=== PATIENT | female | born 1960 | race African-American/Black ===

== ENCOUNTER 2018-12-26 14:17 | Inpatient (IN) | payer SELFPAY ==
[2018-12-26] MEDS ORDERED: NORMAL SALINE 1000 ML 1,000 ML IV ONE (14:57)
--- NOTE | 2018-12-26 14:58 | ER Document Report ---
ED Medical Screen (RME) - General Chief Complaint: High Blood Pressure Stated Complaint: HEADACHE Time Seen by Provider: 12/26/18 14:56 Mode of Arrival: Wheelchair Information source: Patient Notes: 58-year-old female presented to ED for complaint of elevated blood pressure 216/98 with possible diabetes due to frequent urination frequency thirst also she has had multiple injuries to her knees that she does have a twitch. She does have cataracts. She had her tonsils out a and dental surgeries. She states that family is concerned because she is going blind and having peripheral neuropathy as well as frequent urination and frequent thirst. She states she has not been able to get into a doctor because is $25 to get into the doctor and she does not have the money to get into the duct. She states she does smoke 7 cigarettes a day. She is alert oriented respirations regular and unlabored speaking in full sentences. I have greeted and performed a rapid initial assessment of this patient. A comprehensive ED assessment and evaluation of the patient, analysis of test results and completion of medical decision making process will be conducted by an additional ED providers. TRAVEL OUTSIDE OF THE [place] IN LAST 30 DAYS: No - Related Data Allergies/Adverse Reactions: No Known Allergies Allergy (Unverified 12/26/18 14:19) Past Medical History - Social History Chew tobacco use (# tins/day): No Frequency of alcohol use: None Drug Abuse: None Physical Exam - Vital signs Vitals: Temp Pulse BP Pulse Ox 98.5 F 83 241/108 H 98 12/26/18 14:23 12/26/18 14:23 12/26/18 14:23 12/26/18 14:23 Course - Vital Signs Vital signs: Temp Pulse Resp BP Pulse Ox 98.5 F 83 241/108 H 98 12/26/18 14:23 12/26/18 14:23 12/26/18 14:23 12/26/18 14:23
[2018-12-26] MEDS ORDERED: ASPIRIN 325 MG TABLET PO ONE (15:24)
[2018-12-26] MEDS ORDERED: LABETALOL HCL INJ 20 MG/4 ML DISP.SYRIN IV ONE (15:25)
[2018-12-26 15:26] LABS: APPEARANCE,URINE CLEAR; BILIRUBIN,URINE NEGATIVE (NEGATIVE); COLOR,URINE YELLOW; GLUCOSE, URINE NEGATIVE (NEGATIVE); KETONES,URINE NEGATIVE (NEGATIVE); LEUKOCYTE ESTERASE,URINE NEGATIVE (NEGATIVE); NITRITE,URINE NEGATIVE (NEGATIVE); PROTEIN,URINE 100 mg/dL (NEGATIVE); URINE SPECIFIC GRAVITY 1.019; UROBILINOGEN,URINE NEGATIVE mg/dL (<2.0)
[2018-12-26 15:32] LABS: ABSOLUTE BASOPHILS # (AUTO) 0.1 10^3/uL (0.0-0.2); ABSOLUTE EOSINOPHILS # (AUTO) 0.2 10^3/uL (0.0-0.6); ABSOLUTE LYMPHOCYTES (AUTO) 4.4 10^3/uL (0.5-4.7); ABSOLUTE MONOCYTES (AUTO) 0.7 10^3/uL (0.1-1.4); ABSOLUTE NEUT (AUTO) 4.6 10^3/uL (1.7-8.2); BASOPHILS % (AUTO) 1.3 % (0-2); EOSINOPHILS % (AUTO) 1.5 % (0-6); HEMATOCRIT 43.5 % (36.0-47.0); HEMOGLOBIN 14.4 g/dL (12.0-15.5); LYMPHOCYTES % (AUTO) 44.5 % (13-45); MEAN CORPUSCULAR HEMOGLOBIN 27.5 pg (27.0-33.4); MEAN CORPUSCULAR HGB CONC 33.1 g/dL (32.0-36.0); MEAN CORPUSCULAR VOLUME 83 fl (80-97); MONOCYTES % (AUTO) 7.1 % (3-13); PLATELET COUNT 157 10^3/uL (150-450); RED BLOOD COUNT 5.23 10^6/uL (3.72-5.28); RED CELL DISTRIBUTION WIDTH 13.9 % (11.5-14.0); SEGMENTED NEUTROPHILS % (AUTO) 45.6 % (42-78); TOTAL CELLS COUNTED % (AUTO) 100 %
[2018-12-26 15:43] LABS: ALBUMIN 4.6 g/dL (3.5-5.0); ALKALINE PHOSPHATASE 84 U/L (38-126); ANION GAP 10 (5-19); ASPARTATE AMINO TRANSFERASE 26 U/L (14-36); BILIRUBIN,DIRECT 0.2 mg/dL (0.0-0.4); BILIRUBIN,TOTAL 0.3 mg/dL (0.2-1.3); BLOOD UREA NITROGEN 18 mg/dL (7-20); CALCIUM 10.1 mg/dL (8.4-10.2); CARBON DIOXIDE 27 mmol/L (22-30); CHLORIDE 106 mmol/L (98-107); CREATINE KINASE 113 U/L (30-135); GLUCOSE 76 mg/dL (75-110); POTASSIUM 3.9 mmol/L (3.6-5.0); TOTAL PROTEIN 7.6 g/dL (6.3-8.2)
--- NOTE | 2018-12-26 15:45 | ER Document Report ---
ED Blood Pressure Problem - General Chief Complaint: High Blood Pressure Stated Complaint: HEADACHE Time Seen by Provider: 12/26/18 14:56 Primary Care Provider: [facility] [Primary Care Provider] - Follow up as needed Mode of Arrival: Wheelchair Notes: HPI: This is a 58-year-old -[place]ian female with past medical history of hypertension high cholesterol who presents with a headache from her doctor's office due to blood pressure of 210/105 by auto cuff. Still complains of chest pain described as a sharp pain lasting 2 to 3 minutes which is at rest and with exertion which does not change it. She has a HEART Score: History history is a 2 ECG Age is a 1 Risk Factors 3 patient is a smoker and has a strong family history Troponin Total: If HEART score is = 3 AND both tronponin measurments are normal, the 30 day risk of a major adverse cardiac event (all-cause mortality, myocardia infarction or need for coronary revscularization) is < 1% (Sensitivity 100%, NPV 100%). Chest pain in a patient without evidence of cardiac or other serious etiology on workup today. I discussed with patient that, based on their age, risk factors and emergency department testing today, the likelihood that their symptoms are related to a heart attack is very low (estimated risk of heart attack or over the next 30 days of less than 1%). The patient demonstrates decision making capacity and has verbalized an understanding of these risks to me. Based on this, the patient has chosen to follow-up as an outpatient. Usual chest pain return precautions reviewed. The patient states understanding and agreement with this plan. Past medical history as above surgical history family and social history see nurse's notes No known drug allergies review of systems: Constitutional denies fever or chills Chest chest pain denies shortness of breath neurological claims to have a headache denies weakness All other systems negative PHYSICAL EXAMINATION: GENERAL: Well-appearing, well-nourished and in no acute distress. HEAD: Atraumatic, normocephalic. EYES: Pupils equal round and reactive to light, extraocular movements intact, sclera anicteric, conjunctiva are normal. ENT: nares patent, oropharynx clear without exudates. Moist mucous membranes. NECK: Normal range of motion, supple without lymphadenopathy LUNGS: Breath sounds clear to auscultation bilaterally and equal. No wheezes rales or rhonchi. HEART: Regular rate and rhythm without murmurs ABDOMEN: Soft, nontender, normoactive bowel sounds. No guarding, no rebound. No masses appreciated. EXTREMITIES: Normal range of motion, no pitting or edema. No cyanosis. NEUROLOGICAL: No focal neurological deficits. Moves all extremities spontaneously and on command. PSYCH: Normal mood, normal affect. SKIN: Warm, Dry, normal turgor, no rashes or lesions noted. TRAVEL OUTSIDE OF THE [place] IN LAST 30 DAYS: No - Related Data Allergies/Adverse Reactions: No Known Allergies Allergy (Unverified 12/26/18 14:19) Past Medical History - General Information source: Patient - Social History Smoking Status: Current Every Day Smoker Chew tobacco use (# tins/day): No Frequency of alcohol use: None Drug Abuse: None Family History: Reviewed & Not Pertinent Patient has suicidal ideation: No Patient has homicidal ideation: No - Past Medical History Cardiac Medical History: Reports: Hx Hypertension Physical Exam - Vital signs Vitals: Temp Pulse BP Pulse Ox 98.5 F 83 241/108 H 98 12/26/18 14:23 12/26/18 14:23 12/26/18 14:23 12/26/18 14:23 Course - Vital Signs Vital signs: Temp Pulse Resp BP Pulse Ox 98.5 F 83 20 220/118 H 100 12/26/18 14:23 12/26/18 14:23 12/26/18 15:10 12/26/18 17:15 12/26/18 15:10 - Laboratory Result Diagrams: 12/26/18 15:10 12/26/18 15:10 Laboratory results interpreted by me: 12/26/18 12/26/18 14:48 15:10 Creatinine 1.43 H Est GFR ( Amer) 46 L Est GFR (MDRD) Non-Af 38 L Urine Protein 100 H - EKG Interpretation by Mt EKG shows normal: Sinus rhythm Rate: Normal Rhythm: NSR [place]/QRS: Left axis deviation Voltage: Consistant with LVH Additional EKG results interpreted by nd: 12/26/18 16:06 Patient has flipped T waves in 1, 2, aVL, aVL V4 to V6 there is no old KG to compare as a QTC of 487 ABnormal EKG Discharge - Discharge Clinical Impression: Hypertensive emergency, no CHF Condition: Fair Disposition: ADMITTED INPATIENT Admitting Provider: Roman (Hospitalist) Unit Admitted: ICU [facility]: [facility]] - Follow up as needed
[2018-12-26 15:54] LABS: CREATINE KINASE MB 1.53 ng/mL (<4.55); TROPONIN I 0.053 ng/mL
--- NOTE | 2018-12-26 16:00 | RADIOLOGY REPORT (SQ) ---
EXAM DESCRIPTION: CHEST SINGLE VIEW COMPLETED DATE/TIME: 12/26/2018 3:52 pm REASON FOR STUDY: cp COMPARISON: None. NUMBER OF VIEWS: One view. TECHNIQUE: Single frontal radiographic view of the chest acquired. LIMITATIONS: None. FINDINGS: LUNGS AND PLEURA: No opacities, masses or pneumothorax. No pleural effusion. MEDIASTINUM AND HILAR STRUCTURES: No masses. Contour normal. HEART AND VASCULAR STRUCTURES: Mild cardiomegaly. No failure. BONES: No acute findings. HARDWARE: None in the chest. OTHER: No other significant finding. IMPRESSION: Mild cardiomegaly. No failure. TECHNICAL DOCUMENTATION: JOB ID: [id number] [employer]- All Rights Reserved Reading location - IP/workstation name: [email or web address]
[2018-12-26] MEDS ORDERED: NITROGLYCERIN 2% OINTMENT 1 GM PACKET TP ONE (16:08)
[2018-12-26] MEDS ORDERED: NICARDIPINE HCL RTU, ISO-OS 20 MG/200 ML RTUINJ IV PRN (17:20)
[2018-12-26] MEDS ORDERED: GLUCAGON,HUMAN RECOMB 1 MG INJ IM PRN (18:00)
[2018-12-26] MEDS ORDERED: DEXTROSE 40% GEL 15 GM TUBE PO PRN ×2 (18:00)
[2018-12-26] MEDS ORDERED: DEXTROSE 50%-WATER 25 GM/50 ML DISP.SYRIN IV PRN ×2 (18:00)
[2018-12-26] MEDS ORDERED: LORAZEPAM INJ 2 MG/1 ML VIAL IV PRN (18:03)
--- NOTE | 2018-12-26 18:15 | PDOC H&P ---
History of Present Illness Admission Date/PCP: [facility] Patient complains of: Severe headache associated with dizziness History of Present Illness: ULISES MCKEON is a 58 year old female with history of hypertension noncompliant with medications questionable history of diabetes mellitus chronic kidney disease back pains came to the emergency room with complaints of severe headaches. She went to [facility] and found to have a blood pre ssures are very much elevated with systolic blood pressure more than 210 patient was referred to the ER for further management. In the emergency room systolic blood pressure is consistently able to 10 and her diastolic blood pressure is consistently above 110 she was given labetalol 20 mg IV 1 dose at the 3:25 PM nicardipine drip was ordered but not started at the time of my examination around 5:50 PM. Patient also complaining of unsteady gait denies any history of falls. She is also given the history of questionable borderline diabetes mellitus and questionable CKD. Past Medical History Cardiac Medical History: Reports: Hypertension Endocrine Medical History: Reports: Diabetes Mellitus Type 2 Malignancy Medical History: Reports: None GI Medical History: Reports: None Musculoskeltal Medical History: Reports: None Psychiatric Medical History: Reports: None Traumatic Medical History: Reports: None Infectious Medical History: Reports: None Past Surgical History Past Surgical History: Reports: Section, Tonsillectomy Social History Information Source: Patient Lives with: Family Smoking Status: Current Every Day Smoker Frequency of Alcohol Use: None Hx Recreational Drug Use: Yes - Advance Directive Resuscitation Status: Full Code Family History Family History: Reviewed & Not Pertinent Parental Family History Reviewed: Yes - Family history of diabetes mellitus and hypertension. Children Family History Reviewed: Yes Sibling(s) Family History Reviewed.: Yes Medication/Allergy Allergies/Adverse Reactions: No Known Allergies Allergy (Unverified 12/26/18 14:19) Review of Systems Constitutional: PRESENT: headache(s). ABSENT: chills, fatigue, fever(s), weakness Eyes: ABSENT: visual disturbances Ears: ABSENT: hearing changes Nose, Mouth, and Throat: ABSENT: sore throat Cardiovascular: ABSENT: chest pain, dyspnea on exertion, edema, orthropnea, palpitations Respiratory: ABSENT: cough, hemoptysis Gastrointestinal: ABSENT: abdominal pain, constipation, diarrhea, hematemesis, hematochezia, nausea, vomiting Neurological: ABSENT: abnormal gait, abnormal speech, confusion, dizziness, focal weakness, syncope Psychiatric: ABSENT: anxiety, depression, homidical ideation, suicidal ideation Endocrine: ABSENT: cold intolerance, heat intolerance, polydipsia, polyuria Physical Exam Vital Signs: Temp Pulse Resp BP Pulse Ox 98.5 F 83 20 220/118 H 100 12/26/18 14:23 12/26/18 14:23 12/26/18 15:10 12/26/18 17:15 12/26/18 15:10 Intake & Output 12/25/18 12/26/18 12/27/18 06:59 06:59 06:59 Intake Total 1000 Balance 1000 Weight 73.4 kg General appearance: PRESENT: cooperative, mild distress Head exam: PRESENT: atraumatic Eye exam: PRESENT: PERRLA Mouth exam: PRESENT: moist, tongue midline Teeth exam: PRESENT: poor dentation Neck exam: ABSENT: carotid bruit, JVD, lymphadenopathy, thyromegaly Respiratory exam: PRESENT: decreased breath sounds Cardiovascular exam: PRESENT: RRR. ABSENT: diastolic murmur, rubs, systolic murmur GI/Abdominal exam: PRESENT: normal bowel sounds, soft. ABSENT: distended, guarding, mass, organolmegaly, rebound, tenderness Rectal exam: PRESENT: deferred Extremities exam: PRESENT: full ROM. ABSENT: calf tenderness, clubbing, pedal edema Neurological exam: PRESENT: alert, awake, oriented to person, oriented to place, oriented to time, oriented to situation, CN II-XII grossly intact. ABSENT: motor sensory deficit Results Laboratory Results: 12/26/18 15:10 12/26/18 15:10 12/26/18 12/26/18 12/26/18 14:48 15:10 15:10 WBC 10.0 RBC 5.23 Hgb 14.4 Hct 43.5 MCV 83 MCH 27.5 MCHC 33.1 RDW 13.9 Plt Count 157 Seg Neutrophils % 45.6 Sodium 143.0 Potassium 3.9 Chloride 106 Carbon Dioxide 27 Anion Gap 10 BUN 18 Creatinine 1.43 H Est GFR ( Amer) 46 L Glucose 76 Calcium 10.1 Total Bilirubin 0.3 AST 26 Alkaline Phosphatase 84 Total Protein 7.6 Albumin 4.6 Lipase 198.5 Urine Color YELLOW Urine Appearance CLEAR Urine pH 6.0 Ur Specific [place] 1.019 Urine Protein 100 H Urine Glucose (UA) NEGATIVE Urine Ketones NEGATIVE Urine Blood NEGATIVE Urine Nitrite NEGATIVE Ur Leukocyte Esterase NEGATIVE Urine WBC (Auto) 1 Urine RBC (Auto) 1 12/26/18 12/26/18 15:10 15:10 Creatine Kinase 113 CK-MB (CK-2) 1.53 Troponin I 0.053 Impressions: Chest X-Ray 12/26/18 15:22 IMPRESSION: Mild cardiomegaly. No failure. Assessment and Plan - Diagnosis (1) HTN (hypertension), malignant Is this a current diagnosis for this admission?: Yes Plan: 12/26/2018-patient is going to be admitted to ICU. Started on nitroglycerin drip. Also to give clonidine 0.3 mg p.o. now dose. Started on morphine 1 mg IV every 6 as needed for pain and also Ativan 1 mg IV every 6 as needed for anxiety. GI prophylaxis DVT prophylaxis initiated. The plan is to bring the systolic blood pressure from 2 10-1 80 from there gradually bring down the blood pressures to normal levels. EKG was abnormal with T wave inversions most likely secondary to uncontrolled hypertension cardiac enzymes x3 was requested. Initial troponin is 0.058. Patient denies any chest pains. I am going to ask for the renal ultrasound look for any renal stenosis. To start her on nicotine patch.pt will be placed on insulin sliding scale (2) Diabetes Qualifiers: Diabetes mellitus type: type 2 Is this a current diagnosis for this admission?: No Plan: 12/26/2018-patient is given the history of borderline diabetes mellitus to check for hemoglobin A1c and start her on insulin sliding scale before meals and at bedtime and to request for a lipid panel. (3) CKD (chronic kidney disease) Is this a current diagnosis for this admission?: No Plan: 12/26/2018-patient is given the history of chronic kidney disease creatinine is 1.42 at the time of admission plan to do the renal ultrasound and also look for renal artery stenosis. (4) Tobacco abuse Is this a current diagnosis for this admission?: No Plan: 12/26/2018-patient is a chronic smoker current day smoker smoking counseling was provided for more than [address] her on nicotine patch. - Time Time Spent with patient: 25-34 minutes Smoking Cessation Education: over 10 minutes Medications reviewed and adjusted accordingly: Yes Anticipated discharge: Home
[2018-12-26] MEDS ORDERED: ENALAPRILAT DIHYDRATE INJ/PF 1.25 MG/1 ML SDV IV PRN (18:16)
[2018-12-26] MEDS: NITROGLYCERIN/D5W 50 MG/250 ML RTUINJ IV PRN (18:26)
[2018-12-26] MEDS ORDERED: NICOTINE 14 MG/24 HR PATCH.TD24 TD ONE (18:30)
[2018-12-26] MEDS ORDERED: CLONIDINE 0.3 MG/24 HR PATCH.TDWK TD ONE (19:00)
[2018-12-26] MEDS: ENOXAPARIN SODIUM INJ 40 MG/0.4 ML DISP.SYRIN SUBCUT SCH (20:02)
[2018-12-26] MEDS: INSULIN LISPRO 100 UNIT/ML 3 ML VIAL SUBCUT SCH (21:58)
[2018-12-26] MEDS ORDERED: PANTOPRAZOLE SODIUM 40 MG VIAL IV SCH (22:00)
[2018-12-26 22:41] LABS: CREATINE KINASE MB 1.52 ng/mL (<4.55); TROPONIN I 0.05 ng/mL
[2018-12-27 04:48] LABS: HEMATOCRIT 36.6 % (36.0-47.0); MEAN CORPUSCULAR HEMOGLOBIN 27.7 pg (27.0-33.4); MEAN CORPUSCULAR HGB CONC 33.5 g/dL (32.0-36.0); MEAN CORPUSCULAR VOLUME 83 fl (80-97); PLATELET COUNT 134 10^3/uL (150-450); RED BLOOD COUNT 4.44 10^6/uL (3.72-5.28); RED CELL DISTRIBUTION WIDTH 13.7 % (11.5-14.0); WHITE BLOOD COUNT 7.8 10^3/uL (4.0-10.5)
[2018-12-27 04:55] LABS: HEMOGLOBIN 12.3 g/dL (12.0-15.5)
[2018-12-27 05:08] LABS: ALBUMIN 3.8 g/dL (3.5-5.0); ALKALINE PHOSPHATASE 70 U/L (38-126); ANION GAP 10 (5-19); ASPARTATE AMINO TRANSFERASE 20 U/L (14-36); BILIRUBIN,DIRECT 0.3 mg/dL (0.0-0.4); BILIRUBIN,TOTAL 0.3 mg/dL (0.2-1.3); BLOOD UREA NITROGEN 18 mg/dL (7-20); CALCIUM 9.2 mg/dL (8.4-10.2); CARBON DIOXIDE 25 mmol/L (22-30); CHLORIDE 106 mmol/L (98-107); CREATINE KINASE 89 U/L (30-135); GLUCOSE 130 mg/dL (75-110); POTASSIUM 3.6 mmol/L (3.6-5.0); TOTAL PROTEIN 6.4 g/dL (6.3-8.2)
[2018-12-27 05:15] LABS: CREATINE KINASE MB 1.52 ng/mL (<4.55); TROPONIN I 0.052 ng/mL
--- NOTE | 2018-12-27 06:06 | RADIOLOGY REPORT (SQ) ---
EXAM DESCRIPTION: US RETROPERITONEUM LIMITED COMPLETED DATE/TME: 12/26/2018 00:00 CLINICAL HISTORY: ckd COMPARISON: None. TECHNIQUE: Real-time sonographic images of the retroperitoneum were obtained using a curved multihertz transducer. FINDINGS: The visualized portions of the aorta and IVC are unremarkable. The right kidney measures 9.3 cm in length. The left kidney measures 8.6 cm in length. No solid renal mass, shadowing renal calculi, or hydronephrosis. Millimeter simple right renal cyst. Increased bilateral renal cortical echogenicity. The urinary bladder is unremarkable. Incidental note increased echogenicity of the liver. This compatible with hepatic steatosis. IMPRESSION: 1. Increased bilateral renal cortical echogenicity. This can be seen with medical renal disease.
[2018-12-27] MEDS: MORPHINE SULFATE 10 MG/ML INJ IV PRN (07:10)
--- NOTE | 2018-12-27 08:39 | PDOC PROGRESS REPORT ---
Subjective Progress Note for:: 12/27/18 Subjective:: 58 year old female with history of hypertension noncompliant with medications questionable history of diabetes mellitus chronic kidney disease back pains came to the emergency room with complaints of severe headaches. She went to [facility] and found to have a blood pressures are very much elevated with systolic blood pressure more than 210 patient was referred to the ER for further management. In the emergency room systolic blood pressure is consist ently able to 10 and her diastolic blood pressure is consistently above 110 she was given labetalol 20 mg IV 1 dose at the 3:25 PM nicardipine drip was ordered but not started at the time of my examination around 5:50 PM. Patient also complaining of unsteady gait denies any history of falls. She is also given the history of questionable borderline diabetes mellitus and questionable CKD. [id number] female admitted with malignant hypertension she is on nitroglycerin drip at 55 units/h still blood pressure is 190/105 she is also on clonidine patch and receiving Vasotec 1.5 mg IV every 6 PRN for systolic blood pressure more than 170. On no acute events in the last 24 hours. Afebrile. Renal ultrasound was done suggestive of increased echogenicity. Plans to arrange for nephrology consult. Patient is nonoliguric. Patient states she is feeling better Reason For Visit: MALIGNANT HTN Physical Exam Vital Signs: Temp Pulse Resp BP Pulse Ox 98.9 F 74 18 190/105 H 100 12/27/18 08:18 12/27/18 08:18 12/27/18 08:18 12/27/18 08:18 12/27/18 08:18 Intake & Output 12/26/18 12/27/18 12/28/18 06:59 06:59 06:59 Intake Total 1087 Balance 1087 Weight 62.9 kg General appearance: PRESENT: no acute distress, cooperative Head exam: PRESENT: atraumatic Eye exam: PRESENT: PERRLA Mouth exam: PRESENT: moist, tongue midline Teeth exam: PRESENT: poor dentation Neck exam: ABSENT: carotid bruit, JVD, lymphadenopathy, thyromegaly Respiratory exam: PRESENT: decreased breath sounds Cardiovascular exam: PRESENT: RRR. ABSENT: diastolic murmur, rubs, systolic murmur Pulses: PRESENT: normal dorsalis pedis pul GI/Abdominal exam: PRESENT: normal bowel sounds, soft. ABSENT: distended, guarding, mass, organolmegaly, rebound, tenderness Rectal exam: PRESENT: deferred Extremities exam: PRESENT: full ROM. ABSENT: calf tenderness, clubbing, pedal edema Neurological exam: PRESENT: alert, awake, oriented to person, oriented to place, oriented to time, oriented to situation, CN II-XII grossly intact. ABSENT: motor sensory deficit Psychiatric exam: PRESENT: appropriate affect, normal mood. ABSENT: homicidal ideation, suicidal ideation Results Laboratory Results: 12/27/18 04:03 12/27/18 04:03 12/26/18 12/26/18 12/26/18 14:48 15:10 15:10 WBC 10.0 RBC 5.23 Hgb 14.4 Hct 43.5 MCV 83 MCH 27.5 MCHC 33.1 RDW 13.9 Plt Count 157 Seg Neutrophils % 45.6 Sodium 143.0 Potassium 3.9 Chloride 106 Carbon Dioxide 27 Anion Gap 10 BUN 18 Creatinine 1.43 H Est GFR ( Amer) 46 L Glucose 76 Calcium 10.1 Total Bilirubin 0.3 AST 26 Alkaline Phosphatase 84 Total Protein 7.6 Albumin 4.6 Lipase 198.5 Urine Color YELLOW Urine Appearance CLEAR Urine pH 6.0 Ur Specific [place] 1.019 Urine Protein 100 H Urine Glucose (UA) NEGATIVE Urine Ketones NEGATIVE Urine Blood NEGATIVE Urine Nitrite NEGATIVE Ur Leukocyte Esterase NEGATIVE Urine WBC (Auto) 1 Urine RBC (Auto) 1 12/27/18 12/27/18 04:03 04:03 WBC 7.8 RBC 4.44 Hgb 12.3 D Hct 36.6 MCV 83 MCH 27.7 MCHC 33.5 RDW 13.7 Plt Count 134 L Seg Neutrophils % Sodium 140.6 Potassium 3.6 Chloride 106 Carbon Dioxide 25 Anion Gap 10 BUN 18 Creatinine 1.70 H Est GFR ( Amer) 37 L Glucose 130 H Calcium 9.2 Total Bilirubin 0.3 AST 20 Alkaline Phosphatase 70 Total Protein 6.4 Albumin 3.8 Lipase Urine Color Urine Appearance Urine pH Ur Specific [place] Urine Protein Urine Glucose (UA) Urine Ketones Urine Blood Urine Nitrite Ur Leukocyte Esterase Urine WBC (Auto) Urine RBC (Auto) 12/26/18 12/26/18 12/26/18 15:10 15:10 21:54 Creatine Kinase 113 91 CK-MB (CK-2) 1.53 Troponin I 0.053 NT-Pro-B Natriuret Pep 12/26/18 12/27/18 12/27/18 21:54 04:03 04:03 Creatine Kinase 89 CK-MB (CK-2) 1.52 1.52 Troponin I 0.050 0.052 NT-Pro-B Natriuret Pep 274 Impressions: Renal Ultrasound 12/26/18 00:00 IMPRESSION: 1. Increased bilateral renal cortical echogenicity. This can be seen with medical renal disease. Chest X-Ray 12/26/18 15:22 IMPRESSION: Mild cardiomegaly. No failure. Assessment and Plan - Diagnosis (1) HTN (hypertension), malignant Is this a current diagnosis for this admission?: Yes Plan: 12/26/2018-patient is going to be admitted to ICU. Started on nitroglycerin drip. Also to give clonidine 0.3 mg p.o. now dose. Started on morphine 1 mg IV every 6 as needed for pain and also Ativan 1 mg IV every 6 as needed for anxiety. GI prophylaxis DVT prophylaxis initiated. The plan is to bring the systolic blood pressure from 2 10-1 80 from there gradually bring down the blood pressures to normal levels. EKG was abnormal with T wave inversions most likely secondary to uncontrolled hypertension cardiac enzymes x3 was requested. Initial troponin is 0.058. Patient denies any chest pains. I am going to ask for the renal ultrasound look for any renal stenosis. To start her on nicotine patch.pt will be placed on insulin sliding scale 12/27/2018-latest blood pressure is 190/105 patient is on nitroglycerin drip at 55 units/h. She is also on Catapres 0.3 mg patch and receiving Vaseretic 0.125 mg IV every 6 as needed for blood pressure more than systolic blood pressure more than 170. Renal ultrasound shows increased echogenicity. To arrange for a CT chest today to look for any aorta abnormality. Renal consult is going to be requested. Started on amlodipine 10 mg daily. Continue to closely monitor her blood pressures. Patient is on low-sodium diet. (2) Diabetes Qualifiers: Diabetes mellitus type: type 2 Is this a current diagnosis for this admission?: No Plan: 12/26/2018-patient is given the history of borderline diabetes mellitus to check for hemoglobin A1c and start her on insulin sliding scale before meals and at bedtime and to request for a lipid panel. 12/27/2018-patient's hemoglobin A1c 6.2 and blood sugar is 130. Presently on insulin sliding scale. Plan is to continue to closely monitor the blood pressure. (3) CKD (chronic kidney disease) Is this a current diagnosis for this admission?: No Plan: 12/26/2018-patient is given the history of chronic kidney disease creatinine is 1.42 at the time of admission plan to do the renal ultrasound and also look for renal artery stenosis. 12/27 CKD renal ultrasound was done suggestive of increased echogenicity and the creatinine today is 1.7 admission creatinine is 1.45 nonoliguric. Renal ultrasound shows increased echogenicity. Nephrology consult will be requested. (4) Tobacco abuse Is this a current diagnosis for this admission?: No - Time Time Spent with patient: 25-34 minutes Smoking Cessation Education: over 10 minutes Medications reviewed and adjusted accordingly: Yes Anticipated discharge: Home
[2018-12-27] MEDS ORDERED: ENALAPRILAT DIHYDRATE INJ/PF 1.25 MG/1 ML SDV IV PRN (08:45)
[2018-12-27] MEDS ORDERED: ONDANSETRON HCL INJ/PF 4 MG/2 ML SDV ONE (08:54)
[2018-12-27] MEDS ORDERED: ONDANSETRON HCL INJ/PF 4 MG/2 ML SDV IV PRN (09:48)
[2018-12-27] MEDS: INSULIN LISPRO 100 UNIT/ML 3 ML VIAL SUBCUT SCH ×4 (10:11→21:13)
[2018-12-27] MEDS: ENOXAPARIN SODIUM INJ 40 MG/0.4 ML DISP.SYRIN SUBCUT SCH (10:25)
[2018-12-27 10:47] LABS: CREATINE KINASE MB 1.23 ng/mL (<4.55); TROPONIN I 0.049 ng/mL
[2018-12-27] MEDS: NITROGLYCERIN/D5W 50 MG/250 ML RTUINJ IV PRN (11:30)
--- NOTE | 2018-12-27 11:33 | RADIOLOGY REPORT (SQ) ---
EXAM DESCRIPTION: CT CHEST WITHOUT COMPLETED DATE/TIME: 12/27/2018 11:19 am REASON FOR STUDY: shortness of breath COMPARISON: None. TECHNIQUE: CT scan performed of the chest without intravenous contrast. Images reviewed with lung, soft tissue and bone windows. Reconstructed coronal and sagittal MPR images reviewed. All images st ored on PACS. All CT scanners at this facility use dose modulation, iterative reconstruction, and/or weight based d osing when appropriate to reduce radiation dose to as low as reasonably achievable (ALARA). [facility]: Dose Right [facility]: CareDose [facility]: Dose Right [facility]: Teradose 4D [facility]: [facility] RADIATION DOSE: CT Rad equipment meets quality standard of care and radiation dose reduction techniq ues were employed. CTDIvol: 6.5 mGy. DLP: 227 mGy-cm. mGy. LIMITATIONS: No technical limitations. FINDINGS: LUNGS AND PLEURA: No masses, infiltrates, or pneumothorax. No pleural effusions or pleura l calcifications. HILAR AND MEDIASTINAL STRUCTURES: No identified masses or abnormal nodes. No obvious aneurysm. HEART AND VASCULAR STRUCTURES: Cardiomegaly. No aneurysm. No pericardial effusion. UPPER ABDOMEN: Cholelithiasis. Limited exam. THYROID AND OTHER SOFT TISSUES: No masses. No adenopathy. BONES: No significant finding. HARDWARE: None in the chest. OTHER: No other significant findings. IMPRESSION: Cardiomegaly. No acute findings. TECHNICAL DOCUMENTATION: JOB ID: [id number] Quality ID # [id number]: Final reports with documentation of one or more dose reduction techniques (e.g., Au tomated exposure control, adjustment of the mA and/or kV according to patient size, use of iterative reconstruction technique) 2010 [employer]- All Rights Reserved Reading location - IP/workstation name: [email or web address]
--- NOTE | 2018-12-27 14:24 | EKG REPORT ---
SEVERITY:- ABNORMAL ECG - SINUS RHYTHM LVH WITH SECONDARY REPOLARIZATION ABNORMALITY ANTERIOR ST ELEVATION, PROBABLY DUE TO LVH BORDERLINE PROLONGED QT INTERVAL : Confirmed by: Esteban Schulz 27-Dec-2018 14:24:00
--- NOTE | 2018-12-27 14:24 | EKG REPORT ---
SEVERITY:- ABNORMAL ECG - SINUS RHYTHM LVH WITH SECONDARY REPOLARIZATION ABNORMALITY ABNORMAL T, PROBABLE ISCHEMIA, LATERAL LEADS PROLONGED QT INTERVAL : Confirmed by: Esteban Schulz 27-Dec-2018 14:23:34
[2018-12-27] MEDS ORDERED: NICOTINE 21 MG/24 HR PATCH.TD24 TD ONE (15:30)
[2018-12-27] MEDS: NICARDIPINE HCL RTU, ISO-OS 20 MG/200 ML RTUINJ IV PRN ×2 (16:21→20:13)
[2018-12-27 16:40] LABS: CREATINE KINASE MB 1.47 ng/mL (<4.55); TROPONIN I 0.042 ng/mL
[2018-12-27] MEDS: NITROGLYCERIN 2% OINTMENT 1 GM PACKET TP SCH (20:13)
[2018-12-27] MEDS: ASPIRIN 81 MG TABLET, ENT COATED PO SCH (21:11)
[2018-12-27] MEDS: ATORVASTATIN CALCIUM 10 MG TABLET PO SCH (21:11)
[2018-12-27] MEDS ORDERED: AMLODIPINE BESYLATE 10 MG TABLET PO SCH (22:00)
[2018-12-27 22:30] LABS: CREATINE KINASE MB 1.41 ng/mL (<4.55); TROPONIN I 0.047 ng/mL
[2018-12-28] MEDS: NICARDIPINE HCL RTU, ISO-OS 20 MG/200 ML RTUINJ IV PRN (00:52)
[2018-12-28] MEDS: NITROGLYCERIN 2% OINTMENT 1 GM PACKET TP SCH ×4 (02:47→21:40)
[2018-12-28 03:43] LABS: ABSOLUTE BASOPHILS # (AUTO) 0.1 10^3/uL (0.0-0.2); ABSOLUTE EOSINOPHILS # (AUTO) 0.1 10^3/uL (0.0-0.6); ABSOLUTE MONOCYTES (AUTO) 0.9 10^3/uL (0.1-1.4); ABSOLUTE NEUT (AUTO) 6.4 10^3/uL (1.7-8.2); BASOPHILS % (AUTO) 0.8 % (0-2); EOSINOPHILS % (AUTO) 0.5 % (0-6); HEMOGLOBIN 13.1 g/dL (12.0-15.5); MEAN CORPUSCULAR HEMOGLOBIN 27.6 pg (27.0-33.4); MEAN CORPUSCULAR HGB CONC 33.6 g/dL (32.0-36.0); MEAN CORPUSCULAR VOLUME 82 fl (80-97); MONOCYTES % (AUTO) 8.8 % (3-13); PLATELET COUNT 133 10^3/uL (150-450); RED BLOOD COUNT 4.75 10^6/uL (3.72-5.28); RED CELL DISTRIBUTION WIDTH 13.8 % (11.5-14.0); SEGMENTED NEUTROPHILS % (AUTO) 60.9 % (42-78); TOTAL CELLS COUNTED % (AUTO) 100 %; WHITE BLOOD COUNT 10.4 10^3/uL (4.0-10.5)
[2018-12-28 04:05] LABS: ALBUMIN 4.3 g/dL (3.5-5.0); ALKALINE PHOSPHATASE 84 U/L (38-126); ANION GAP 10 (5-19); ASPARTATE AMINO TRANSFERASE 22 U/L (14-36); BILIRUBIN,DIRECT 0.3 mg/dL (0.0-0.4); BILIRUBIN,TOTAL 0.7 mg/dL (0.2-1.3); BLOOD UREA NITROGEN 15 mg/dL (7-20); CALCIUM 9.9 mg/dL (8.4-10.2); CARBON DIOXIDE 28 mmol/L (22-30); CHLORIDE 102 mmol/L (98-107); CREATINE KINASE 87 U/L (30-135); GLUCOSE 124 mg/dL (75-110); POTASSIUM 4.1 mmol/L (3.6-5.0); TOTAL PROTEIN 7.3 g/dL (6.3-8.2)
[2018-12-28 04:17] LABS: CREATINE KINASE MB 1.07 ng/mL (<4.55); TROPONIN I 0.059 ng/mL
[2018-12-28] MEDS: INSULIN LISPRO 100 UNIT/ML 3 ML VIAL SUBCUT SCH ×4 (08:42→21:55)
--- NOTE | 2018-12-28 09:01 | RADIOLOGY REPORT (SQ) ---
EXAM DESCRIPTION: DUPLEX ART/EREN FLOW COMPLETE COMPLETED DATE/TIME: 12/28/2018 8:44 am REASON FOR STUDY: renal artery stenosis COMPARISON: None. TECHNIQUE: Realtime and static grayscale images acquired. Selected color Doppler, velocities and spe ctral images recorded. LIMITATIONS: None. FINDINGS: RIGHT KIDNEY: RENAL ARTERY VELOCITIES: 284 cm/sec. Segmental artery velocity 60.2 cm/sec. RENAL VEIN: Color doppler flow present, patent. VELOCITY RATIO: 1.01. Normal waveforms. KIDNEY: 8.2 cm in length. Echogenicity is increased. LEFT KIDNEY: RENAL ARTERY VELOCITIES: Main renal artery is not visualized. Segmental artery velocity 58.6 cm/sec. Velocities at the renal hilum are calculated 273 cm/sec. RENAL VEIN: Color doppler flow present, patent. VELOCITY RATIO: 2.89. Normal waveforms. KIDNEY: The left kidney measures 7.9 cm in length. There is increased echogenicity. BLADDER: Normal. OTHER: Incidental note is made of gallbladder sludge possibly stones. No wall thickening. IMPRESSION: Elevated main renal artery velocities on the right. Elevated velocities at the left candace al hilum. Recommend correlation with MRA. COMMENT: NORMAL RENAL ARTERY/AORTA VELOCITY RATIO IS LESS THAN OR EQUAL TO 3.5. TECHNICAL DOCUMENTATION: JOB ID: [id number] [employer]- All Rights Reserved Reading location - IP/workstation name: [email or web address]
[2018-12-28] MEDS: LOSARTAN POTASSIUM 25 MG TABLET PO SCH (09:16)
[2018-12-28] MEDS: AMLODIPINE BESYLATE 10 MG TABLET PO SCH (09:16)
[2018-12-28] MEDS: NICOTINE 21 MG/24 HR PATCH.TD24 TD SCH (09:17)
[2018-12-28] MEDS: ENOXAPARIN SODIUM INJ 40 MG/0.4 ML DISP.SYRIN SUBCUT SCH (09:18)
[2018-12-28] MEDS: HYDRALAZINE HCL 10 MG TABLET PO SCH ×2 (13:03→21:54)
--- NOTE | 2018-12-28 18:26 | PDOC PROGRESS REPORT ---
Subjective Progress Note for:: 12/28/18 Subjective:: Patient's blood pressure is improved. She is resting in bed and appears to be comfortable. She does have involuntary myoclonic episodes with her legs. Reason For Visit: MALIGNANT HTN Physical Exam Vital Signs: Temp Pulse Resp BP Pulse Ox 98.6 F 80 19 165/82 H 99 12/27/18 16:00 12/28/18 08:00 12/28/18 16:00 12/28/18 15:42 12/28/18 16:00 Intake & Output 12/27/18 12/28/18 12/29/18 06:59 06:59 06:59 Intake Total 1087 673 403 Output Total 300 1550 900 Balance 887 870 -358 Weight 62.9 kg 61.7 kg General appearance: PRESENT: no acute distress, cooperative, well-developed Head exam: PRESENT: atraumatic, normocephalic Eye exam: PRESENT: conjunctiva pale. ABSENT: scleral icterus Ear exam: PRESENT: normal external ear exam. ABSENT: bleeding, drainage Mouth exam: PRESENT: moist, tongue midline Respiratory exam: PRESENT: clear to auscultation [place], symmetrical, unlabored. ABSENT: rales, rhonchi, tachypnea, wheezes Cardiovascular exam: PRESENT: RRR, +S1, +S2 GI/Abdominal exam: PRESENT: normal bowel sounds, soft. ABSENT: distended, tenderness Rectal exam: PRESENT: deferred Extremities exam: ABSENT: joint swelling, pedal edema Musculoskeletal exam: PRESENT: other - Decreased muscle mass Neurological exam: PRESENT: alert, awake, CN II-XII grossly intact. ABSENT: oriented to person, oriented to place, oriented to time, oriented to situation Psychiatric exam: PRESENT: flat affect. ABSENT: agitated, anxious Focused psych exam: ABSENT: delusional, restlessness Skin exam: PRESENT: dry, normal color, warm. ABSENT: rash Results Laboratory Results: 12/28/18 03:33 12/28/18 03:33 12/28/18 12/28/18 03:33 03:33 WBC 10.4 RBC 4.75 Hgb 13.1 Hct 39.0 MCV 82 MCH 27.6 MCHC 33.6 RDW 13.8 Plt Count 133 L Seg Neutrophils % 60.9 Sodium 139.5 Potassium 4.1 Chloride 102 Carbon Dioxide 28 Anion Gap 10 BUN 15 Creatinine 1.35 H Est GFR ( Amer) 49 L Glucose 124 H Calcium 9.9 Magnesium 1.9 Total Bilirubin 0.7 AST 22 Alkaline Phosphatase 84 Total Protein 7.3 Albumin 4.3 12/26/18 12/26/18 12/26/18 15:10 15:10 21:54 Creatine Kinase 113 91 CK-MB (CK-2) 1.53 Troponin I 0.053 NT-Pro-B Natriuret Pep 12/26/18 12/27/18 12/27/18 21:54 04:03 04:03 Creatine Kinase 89 CK-MB (CK-2) 1.52 1.52 Troponin I 0.050 0.052 NT-Pro-B Natriuret Pep 274 12/27/18 12/27/18 12/27/18 10:05 10:05 16:01 Creatine Kinase 93 87 CK-MB (CK-2) 1.23 Troponin I 0.049 NT-Pro-B Natriuret Pep 12/27/18 12/27/18 12/27/18 16:01 21:47 21:47 Creatine Kinase 83 CK-MB (CK-2) 1.47 1.41 Troponin I 0.042 0.047 NT-Pro-B Natriuret Pep 12/28/18 12/28/18 03:33 03:33 Creatine Kinase 87 CK-MB (CK-2) 1.07 Troponin I 0.059 NT-Pro-B Natriuret Pep Impressions: Renal Ultrasound 12/26/18 00:00 IMPRESSION: 1. Increased bilateral renal cortical echogenicity. This can be seen with medical renal disease. Chest X-Ray 12/26/18 15:22 IMPRESSION: Mild cardiomegaly. No failure. Chest CT 12/27/18 00:00 IMPRESSION: Cardiomegaly. No acute findings. Renal Artery Duplex 12/28/18 00:00 IMPRESSION: Elevated main renal artery velocities on the right. Elevated velocities at the left renal hilum. Recommend correlation with MRA. Assessment and Plan - Diagnosis (1) HTN (hypertension), malignant Is this a current diagnosis for this admission?: Yes Plan: 12/28/2018-the patient was on a continuous Cardene drip. She has been off the drip since this morning. We have initiated hydralazine, amlodipine and low-dose losartan. The patient is scheduled for a renal artery MRA. Blood pressures are still elevated but we need to reduce slowly. (2) Diabetes Qualifiers: Diabetes mellitus type: type 2 Is this a current diagnosis for this admission?: No Plan: 12/28/2018-continue sliding scale coverage. Accu-Cheks are all under 200. (3) CKD (chronic kidney disease) Is this a current diagnosis for this admission?: Yes Plan: 12/28/2018-patient with stage III chronic kidney disease. Creatinine appears stable. Await results of renal artery MRA. (4) Tobacco abuse Is this a current diagnosis for this admission?: Yes Plan: 12/28/2018-continue nicotine patch. - Time Time Spent with patient: 15-24 minutes Medications reviewed and adjusted accordingly: Yes
--- NOTE | 2018-12-28 18:39 | PDOC PROGRESS REPORT ---
Subjective Progress Note for:: 12/28/18 Subjective:: Stable for transfer to the floor Reason For Visit: MALIGNANT HTN Physical Exam Vital Signs: Temp Pulse Resp BP Pulse Ox 98.6 F 80 19 165/82 H 99 12/27/18 16:00 12/28/18 08:00 12/28/18 16:00 12/28/18 15:42 12/28/18 16:00 Intake & Output 12/27/18 12/28/18 12/29/18 06:59 06:59 06:59 Intake Total 1087 673 403 Output Total 300 1550 900 Balance 132 -871 -854 Weight 62.9 kg 61.7 kg Results Laboratory Results: 12/28/18 03:33 12/28/18 03:33 12/28/18 12/28/18 03:33 03:33 WBC 10.4 RBC 4.75 Hgb 13.1 Hct 39.0 MCV 82 MCH 27.6 MCHC 33.6 RDW 13.8 Plt Count 133 L Seg Neutrophils % 60.9 Sodium 139.5 Potassium 4.1 Chloride 102 Carbon Dioxide 28 Anion Gap 10 BUN 15 Creatinine 1.35 H Est GFR ( Amer) 49 L Glucose 124 H Calcium 9.9 Magnesium 1.9 Total Bilirubin 0.7 AST 22 Alkaline Phosphatase 84 Total Protein 7.3 Albumin 4.3 12/26/18 12/26/18 12/26/18 15:10 15:10 21:54 Creatine Kinase 113 91 CK-MB (CK-2) 1.53 Troponin I 0.053 NT-Pro-B Natriuret Pep 12/26/18 12/27/18 12/27/18 21:54 04:03 04:03 Creatine Kinase 89 CK-MB (CK-2) 1.52 1.52 Troponin I 0.050 0.052 NT-Pro-B Natriuret Pep 274 12/27/18 12/27/18 12/27/18 10:05 10:05 16:01 Creatine Kinase 93 87 CK-MB (CK-2) 1.23 Troponin I 0.049 NT-Pro-B Natriuret Pep 12/27/18 12/27/18 12/27/18 16:01 21:47 21:47 Creatine Kinase 83 CK-MB (CK-2) 1.47 1.41 Troponin I 0.042 0.047 NT-Pro-B Natriuret Pep 12/28/18 12/28/18 03:33 03:33 Creatine Kinase 87 CK-MB (CK-2) 1.07 Troponin I 0.059 NT-Pro-B Natriuret Pep Impressions: Renal Ultrasound 12/26/18 00:00 IMPRESSION: 1. Increased bilateral renal cortical echogenicity. This can be seen with medical renal disease. Chest X-Ray 12/26/18 15:22 IMPRESSION: Mild cardiomegaly. No failure. Chest CT 12/27/18 00:00 IMPRESSION: Cardiomegaly. No acute findings. Renal Artery Duplex 12/28/18 00:00 IMPRESSION: Elevated main renal artery velocities on the right. Elevated velocities at the left renal hilum. Recommend correlation with MRA.
--- NOTE | 2018-12-28 19:27 | RADIOLOGY REPORT (SQ) ---
EXAM DESCRIPTION: MRA ABDOMEN WITHOUT COMPLETED DATE/TIME: 12/28/2018 6:05 pm REASON FOR STUDY: FOLLOW UP TO RENAL DOPPLER/RECOMMENDED BY COMPARISON: None. TECHNIQUE: Noncontrast [id number] MR angiogram of the renal arteries. CONTRAST TYPE AND DOSE: None. RENAL FUNCTION: Not applicable. LIMITATIONS: Motion artifact. FINDINGS: AORTA AND ILIAC ARTERIES:No aneurysm. No dissection. No significant finding or stenosis. MESENTERIC VESSELS:No significant finding or stenosis. RENAL ARTERIES:Solitary bilateral renal arteries. Suspect approximately 50% stenosis at the origin o f the right renal artery and approximately 50% stenosis approximately 1 cm distal to the origin of th e left renal artery. ABDOMINAL ORGANS: Limited evaluation. No obvious abnormality. BONY STRUCTURES: Limited evaluation. No obvious abnormality. OTHER: No other significant finding. IMPRESSION: Examination is somewhat limited by motion artifact. Solitary bilateral renal arteries. Suspect approximately 50% stenosis at the origin of the right renal artery and approximately 50% sten osis approximately 1 cm distal to the origin of the left renal artery. Findings are in keeping with Doppler flow velocity abnormalities on prior renal Doppler ultrasound. CT angiogram may be used to f urther evaluate and is more robust against breath motion artifact and superior for the evaluation of calcific atherosclerosis. TECHNICAL DOCUMENTATION: JOB ID: [id number] [employer]- All Rights Reserved Reading location - IP/workstation name: [email or web address]
[2018-12-28] MEDS: ATORVASTATIN CALCIUM 10 MG TABLET PO SCH (21:50)
[2018-12-28] MEDS: ASPIRIN 81 MG TABLET, ENT COATED PO SCH (21:50)
[2018-12-29] MEDS: NITROGLYCERIN 2% OINTMENT 1 GM PACKET TP SCH ×4 (02:35→21:09)
[2018-12-29] MEDS: MORPHINE SULFATE 10 MG/ML INJ IV PRN (02:43)
[2018-12-29 03:49] LABS: ABSOLUTE BASOPHILS # (AUTO) 0.1 10^3/uL (0.0-0.2); ABSOLUTE EOSINOPHILS # (AUTO) 0.1 10^3/uL (0.0-0.6); ABSOLUTE LYMPHOCYTES (AUTO) 3.5 10^3/uL (0.5-4.7); ABSOLUTE MONOCYTES (AUTO) 0.8 10^3/uL (0.1-1.4); ABSOLUTE NEUT (AUTO) 4.8 10^3/uL (1.7-8.2); BASOPHILS % (AUTO) 1.1 % (0-2); EOSINOPHILS % (AUTO) 1.2 % (0-6); HEMATOCRIT 38.8 % (36.0-47.0); HEMOGLOBIN 12.9 g/dL (12.0-15.5); LYMPHOCYTES % (AUTO) 37.6 % (13-45); MEAN CORPUSCULAR HEMOGLOBIN 27.5 pg (27.0-33.4); MEAN CORPUSCULAR HGB CONC 33.2 g/dL (32.0-36.0); MEAN CORPUSCULAR VOLUME 83 fl (80-97); MONOCYTES % (AUTO) 8.3 % (3-13); PLATELET COUNT 131 10^3/uL (150-450); RED BLOOD COUNT 4.68 10^6/uL (3.72-5.28); RED CELL DISTRIBUTION WIDTH 13.7 % (11.5-14.0); SEGMENTED NEUTROPHILS % (AUTO) 51.8 % (42-78); TOTAL CELLS COUNTED % (AUTO) 100 %; WHITE BLOOD COUNT 9.2 10^3/uL (4.0-10.5)
[2018-12-29 04:09] LABS: ANION GAP 9 (5-19); BLOOD UREA NITROGEN 21 mg/dL (7-20); CALCIUM 9.5 mg/dL (8.4-10.2); CARBON DIOXIDE 28 mmol/L (22-30); CHLORIDE 102 mmol/L (98-107); GLUCOSE 108 mg/dL (75-110); POTASSIUM 4.3 mmol/L (3.6-5.0)
[2018-12-29] MEDS: HYDRALAZINE HCL 10 MG TABLET PO SCH ×3 (05:04→22:39)
[2018-12-29] MEDS: ENOXAPARIN SODIUM INJ 40 MG/0.4 ML DISP.SYRIN SUBCUT SCH (09:38)
[2018-12-29] MEDS: INSULIN LISPRO 100 UNIT/ML 3 ML VIAL SUBCUT SCH ×4 (09:38→22:40)
[2018-12-29] MEDS: NICOTINE 21 MG/24 HR PATCH.TD24 TD SCH (09:40)
[2018-12-29] MEDS: LOSARTAN POTASSIUM 25 MG TABLET PO SCH (09:41)
[2018-12-29] MEDS: AMLODIPINE BESYLATE 10 MG TABLET PO SCH (09:41)
--- NOTE | 2018-12-29 13:24 | PDOC PROGRESS REPORT ---
Subjective Progress Note for:: 12/29/18 Subjective:: Patient is quite comfortable resting in bed. Visitor is present. Reason For Visit: MALIGNANT HTN Physical Exam Vital Signs: Temp Pulse Resp BP Pulse Ox 97.9 F 68 16 149/85 H 98 12/29/18 12:00 12/29/18 12:00 12/29/18 12:00 12/29/18 12:00 12/29/18 12:00 Intake & Output 12/28/18 12/29/18 12/30/18 06:59 06:59 06:59 Intake Total 673 403 120 Output Total 1550 1500 0 Balance -877 -1097 120 Weight 61.7 kg 62.3 kg General appearance: PRESENT: no acute distress, cooperative, well-developed Head exam: PRESENT: atraumatic, normocephalic Eye exam: PRESENT: conjunctiva pink. ABSENT: scleral icterus Ear exam: PRESENT: normal external ear exam. ABSENT: bleeding, drainage Mouth exam: PRESENT: moist, tongue midline Respiratory exam: PRESENT: clear to auscultation [place], symmetrical, unlabored. ABSENT: rales, stridor, tachypnea, wheezes Cardiovascular exam: PRESENT: RRR, +S1, +S2, systolic murmur - 2/6 GI/Abdominal exam: PRESENT: normal bowel sounds, soft. ABSENT: guarding, tenderness Extremities exam: ABSENT: calf tenderness, joint swelling, pedal edema Musculoskeletal exam: PRESENT: other - Myoclonic jerks in her legs Neurological exam: PRESENT: alert, awake, oriented to person, oriented to place, oriented to time, oriented to situation, other - Patient exhibits myoclonic jerking in her legs. She states she was told that it comes from an injection in her knee. Psychiatric exam: PRESENT: appropriate affect, normal mood. ABSENT: agitated, anxious Focused psych exam: ABSENT: delusional Skin exam: PRESENT: dry, normal color, warm. ABSENT: rash Results Laboratory Results: 12/29/18 03:39 12/29/18 03:39 12/29/18 12/29/18 03:39 03:39 WBC 9.2 RBC 4.68 Hgb 12.9 Hct 38.8 MCV 83 MCH 27.5 MCHC 33.2 RDW 13.7 Plt Count 131 L Seg Neutrophils % 51.8 Sodium 138.7 Potassium 4.3 Chloride 102 Carbon Dioxide 28 Anion Gap 9 BUN 21 H Creatinine 1.44 H Est GFR ( Amer) 45 L Glucose 108 Calcium 9.5 Magnesium 2.0 12/26/18 12/26/18 12/26/18 15:10 15:10 21:54 Creatine Kinase 113 91 CK-MB (CK-2) 1.53 Troponin I 0.053 NT-Pro-B Natriuret Pep 12/26/18 12/27/18 12/27/18 21:54 04:03 04:03 Creatine Kinase 89 CK-MB (CK-2) 1.52 1.52 Troponin I 0.050 0.052 NT-Pro-B Natriuret Pep 274 12/27/18 12/27/18 12/27/18 10:05 10:05 16:01 Creatine Kinase 93 87 CK-MB (CK-2) 1.23 Troponin I 0.049 NT-Pro-B Natriuret Pep 12/27/18 12/27/18 12/27/18 16:01 21:47 21:47 Creatine Kinase 83 CK-MB (CK-2) 1.47 1.41 Troponin I 0.042 0.047 NT-Pro-B Natriuret Pep 12/28/18 12/28/18 03:33 03:33 Creatine Kinase 87 CK-MB (CK-2) 1.07 Troponin I 0.059 NT-Pro-B Natriuret Pep Impressions: Renal Ultrasound 12/26/18 00:00 IMPRESSION: 1. Increased bilateral renal cortical echogenicity. This can be seen with medical renal disease. Chest X-Ray 12/26/18 15:22 IMPRESSION: Mild cardiomegaly. No failure. Chest CT 12/27/18 00:00 IMPRESSION: Cardiomegaly. No acute findings. Renal Artery Duplex 12/28/18 00:00 IMPRESSION: Elevated main renal artery velocities on the right. Elevated velocities at the left renal hilum. Recommend correlation with MRA. Abdomen MRI with MRA 12/28/18 16:56 IMPRESSION: Examination is somewhat limited by motion artifact. Solitary bi lateral renal arteries. Suspect approximately 50% stenosis at the origin of the right renal artery and approximately 50% stenosis approximately 1 cm distal to the origin of the left renal artery. Findings are in keeping with Doppler flow velocity abnormalities on prior renal Doppler ultrasound. CT angiogram may be used to further evaluate and is more robust against breath motion artifact and superior for the evaluation of calcific atherosclerosis. Assessment and Plan - Diagnosis (1) HTN (hypertension), malignant Is this a current diagnosis for this admission?: Yes Plan: 12/28/2018-the patient was on a continuous Cardene drip. She has been off the drip since this morning. We have initiated hydralazine, amlodipine and low-dose losartan. The patient is scheduled for a renal artery MRA. Blood pressures are still elevated but we need to reduce slowly. 12/29/2018-patient's blood pressure is very good. At this time we will continue the hydralazine, losartan and amlodipine. Consider decreasing the hydralazine increase in the losartan as well as adding chlorthalidone. (2) Diabetes Qualifiers: Diabetes mellitus type: type 2 Is this a current diagnosis for this admission?: No Plan: 12/28/2018-continue sliding scale coverage. Accu-Cheks are all under 200. 12/29/[id number] are excellent. Continue current regimen. (3) CKD (chronic kidney disease) Is this a current diagnosis for this admission?: Yes Plan: 12/28/2018-patient with stage III chronic kidney disease. Creatinine appears stable. Await results of renal artery MRA. 12/29/2018-his renal function is stable. (4) Tobacco abuse Is this a current diagnosis for this admission?: Yes Plan: 12/28/2018-continue nicotine patch. 12/29/2018-explained to the patient that if she keeps smoking it will accelerate her renal artery stenosis as well as increase her risk for stroke, lung disease and peripheral arterial disease. We will continue the nicotine patch. She states that she is not experiencing any problems and would like to quit. (5) Renal artery stenosis Is this a current diagnosis for this admission?: Yes Plan: 12/29/2018-MRI revealed 50% stenosis bilateral renal arteries. Both lesions are at or close to the proximal end. Excellent blood pressure control on the current regimen. Consider modifying regimen with a focus on the renal artery stenosis. Once is stable consider referral for angioplasty. (6) Myoclonus Is this a current diagnosis for this admission?: Yes Plan: 12/29/2018-the patient exhibits myoclonic-like jerking of her legs. I will ask physical therapy to see her. She states it was due to an injection in her knee. I suggested that she be evaluated by neurology or physiatry post discharge. - Time Time Spent with patient: 15-24 minutes Smoking Cessation Education: 3 to 10 minutes Medications reviewed and adjusted accordingly: Yes Anticipated discharge: Home
[2018-12-29] MEDS: ASPIRIN 81 MG TABLET, ENT COATED PO SCH (22:39)
[2018-12-29] MEDS: ATORVASTATIN CALCIUM 40 MG TABLET PO SCH (22:40)
[2018-12-30] MEDS ORDERED: LABETALOL HCL INJ 20 MG/4 ML DISP.SYRIN IV PRN (00:20)
[2018-12-30] MEDS: HYDRALAZINE HCL INJ/PF 20 MG/1 ML SDV IV PRN (00:37)
[2018-12-30 03:49] LABS: ABSOLUTE BASOPHILS # (AUTO) 0.1 10^3/uL (0.0-0.2); ABSOLUTE EOSINOPHILS # (AUTO) 0.2 10^3/uL (0.0-0.6); ABSOLUTE LYMPHOCYTES (AUTO) 3.5 10^3/uL (0.5-4.7); ABSOLUTE MONOCYTES (AUTO) 0.6 10^3/uL (0.1-1.4); ABSOLUTE NEUT (AUTO) 4.5 10^3/uL (1.7-8.2); BASOPHILS % (AUTO) 0.8 % (0-2); EOSINOPHILS % (AUTO) 1.8 % (0-6); HEMATOCRIT 38.9 % (36.0-47.0); LYMPHOCYTES % (AUTO) 39.7 % (13-45); MEAN CORPUSCULAR HEMOGLOBIN 27.6 pg (27.0-33.4); MEAN CORPUSCULAR HGB CONC 33.5 g/dL (32.0-36.0); MEAN CORPUSCULAR VOLUME 82 fl (80-97); MONOCYTES % (AUTO) 6.8 % (3-13); PLATELET COUNT 149 10^3/uL (150-450); RED BLOOD COUNT 4.72 10^6/uL (3.72-5.28); SEGMENTED NEUTROPHILS % (AUTO) 50.9 % (42-78); TOTAL CELLS COUNTED % (AUTO) 100 %; WHITE BLOOD COUNT 8.8 10^3/uL (4.0-10.5)
[2018-12-30] MEDS: NITROGLYCERIN 2% OINTMENT 1 GM PACKET TP SCH ×4 (04:11→21:34)
[2018-12-30 04:14] LABS: ALBUMIN 3.9 g/dL (3.5-5.0); ANION GAP 9 (5-19); BLOOD UREA NITROGEN 21 mg/dL (7-20); CALCIUM 9.7 mg/dL (8.4-10.2); CARBON DIOXIDE 28 mmol/L (22-30); CHLORIDE 102 mmol/L (98-107); GLUCOSE 126 mg/dL (75-110); PHOSPHORUS 4.3 mg/dL (2.5-4.5); POTASSIUM 4.3 mmol/L (3.6-5.0)
[2018-12-30] MEDS: HYDRALAZINE HCL 10 MG TABLET PO SCH ×3 (06:27→21:35)
[2018-12-30] MEDS: INSULIN LISPRO 100 UNIT/ML 3 ML VIAL SUBCUT SCH ×4 (10:27→21:33)
[2018-12-30] MEDS: LOSARTAN POTASSIUM 25 MG TABLET PO SCH (10:39)
[2018-12-30] MEDS: AMLODIPINE BESYLATE 10 MG TABLET PO SCH (10:40)
[2018-12-30] MEDS: NICOTINE 21 MG/24 HR PATCH.TD24 TD SCH (10:40)
[2018-12-30] MEDS: ENOXAPARIN SODIUM INJ 40 MG/0.4 ML DISP.SYRIN SUBCUT SCH (10:44)
--- NOTE | 2018-12-30 12:59 | PDOC PROGRESS REPORT ---
Subjective Progress Note for:: 12/30/18 Subjective:: The patient is sitting up in bed eating lunch. She continues to have myoclonic jerks. Overall she appears comfortable. Reason For Visit: MALIGNANT HTN Physical Exam Vital Signs: Temp Pulse Resp BP Pulse Ox 98.2 F 89 16 154/84 H 96 12/30/18 12:44 12/30/18 12:44 12/30/18 12:44 12/30/18 12:44 12/30/18 12:44 Intake & Output 12/29/18 12/30/18 12/31/18 06:59 06:59 06:59 Intake Total 403 360 500 Output Total 1500 900 Balance -1097 -540 500 Weight 62.3 kg 63.2 kg 64.4 kg General appearance: PRESENT: no acute distress, cooperative, well-developed Head exam: PRESENT: atraumatic, normocephalic Eye exam: PRESENT: conjunctiva pink, other. ABSENT: scleral icterus Ear exam: PRESENT: normal external ear exam. ABSENT: bleeding, drainage Mouth exam: PRESENT: moist, tongue midline Respiratory exam: PRESENT: clear to auscultation [place], symmetrical, unlabored. ABSENT: rales, rhonchi, tachypnea, wheezes Cardiovascular exam: PRESENT: RRR, +S1, +S2 GI/Abdominal exam: PRESENT: normal bowel sounds, soft. ABSENT: distended, tenderness Extremities exam: ABSENT: joint swelling, pedal edema Neurological exam: PRESENT: alert, awake, oriented to person, oriented to place, oriented to time, oriented to situation, other - Sporadic myoclonus affecting all extremities Psychiatric exam: PRESENT: appropriate affect, normal mood. ABSENT: agitated, anxious Focused psych exam: ABSENT: delusional, restlessness Skin exam: PRESENT: dry, normal color, warm Results Laboratory Results: 12/30/18 03:37 12/30/18 03:37 12/30/18 12/30/18 03:37 03:37 WBC 8.8 RBC 4.72 Hgb 13.0 Hct 38.9 MCV 82 MCH 27.6 MCHC 33.5 RDW 14.0 Plt Count 149 L Seg Neutrophils % 50.9 Sodium 138.8 Potassium 4.3 Chloride 102 Carbon Dioxide 28 Anion Gap 9 BUN 21 H Creatinine 1.40 H Est GFR ( Amer) 47 L Glucose 126 H Calcium 9.7 Phosphorus 4.3 Magnesium 2.1 Albumin 3.9 12/26/18 12/26/18 12/26/18 15:10 15:10 21:54 Creatine Kinase 113 91 CK-MB (CK-2) 1.53 Troponin I 0.053 NT-Pro-B Natriuret Pep 12/26/18 12/27/18 12/27/18 21:54 04:03 04:03 Creatine Kinase 89 CK-MB (CK-2) 1.52 1.52 Troponin I 0.050 0.052 NT-Pro-B Natriuret Pep 274 12/27/18 12/27/18 12/27/18 10:05 10:05 16:01 Creatine Kinase 93 87 CK-MB (CK-2) 1.23 Troponin I 0.049 NT-Pro-B Natriuret Pep 12/27/18 12/27/18 12/27/18 16:01 21:47 21:47 Creatine Kinase 83 CK-MB (CK-2) 1.47 1.41 Troponin I 0.042 0.047 NT-Pro-B Natriuret Pep 12/28/18 12/28/18 03:33 03:33 Creatine Kinase 87 CK-MB (CK-2) 1.07 Troponin I 0.059 NT-Pro-B Natriuret Pep Impressions: Renal Ultrasound 12/26/18 00:00 IMPRESSION: 1. Increased bilateral renal cortical echogenicity. This can be seen with medical renal disease. Chest X-Ray 12/26/18 15:22 IMPRESSION: Mild cardiomegaly. No failure. Chest CT 12/27/18 00:00 IMPRESSION: Cardiomegaly. No acute findings. Renal Artery Duplex 12/28/18 00:00 IMPRESSION: Elevated main renal artery velocities on the right. Elevated velocities at the left renal hilum. Recommend correlation with MRA. Abdomen MRI with MRA 12/28/18 16:56 IMPRESSION: Examination is somewhat limited by motion artifact. Solitary [place] ateral renal arteries. Suspect approximately 50% stenosis at the origin of the right renal artery and approximately 50% stenosis approximately 1 cm distal to the origin of the left renal artery. Findings are in keeping with Doppler flow velocity abnormalities on prior renal Doppler ultrasound. CT angiogram may be used to further evaluate and is more robust against breath motion artifact and superior for the evaluation of calcific atherosclerosis. Assessment and Plan - Diagnosis (1) HTN (hypertension), malignant Is this a current diagnosis for this admission?: Yes Plan: 12/28/2018-the patient was on a continuous Cardene drip. She has been off the drip since this morning. We have initiated hydralazine, amlodipine and low-dose losartan. The patient is scheduled for a renal artery MRA. Blood pressures are still elevated but we need to reduce slowly. 12/29/2018-patient's blood pressure is very good. At this time we will continue the hydralazine, losartan and amlodipine. Consider decreasing the hydralazine increase in the losartan as well as adding chlorthalidone. 12/30/2018-her blood pressure still higher than desired. I will increase the losartan. We may need to decrease the amlodipine and/or hydralazine. The patient does have bilateral renal stenosis at approximately 50% on each side. She will need follow-up with nephrology. At this point I do not believe any surgical or intravascular intervention is required. (2) Diabetes Qualifiers: Diabetes mellitus type: type 2 Is this a current diagnosis for this admission?: Yes Plan: 12/28/2018-continue sliding scale coverage. Accu-Cheks are all under 200. 12/29/[id number] are excellent. Continue current regimen. 12/30/2018-still with excellent Accu-Cheks. Continue diabetic diet. (3) CKD (chronic kidney disease) Qualifiers: Chronic kidney disease stage: stage 3 (moderate) Qualified Code(s): N18.3 - Chronic kidney disease, stage 3 (moderate) Is this a current diagnosis for this admission?: Yes Plan: 12/28/2018-patient with stage III chronic kidney disease. Creatinine appears stable. Await results of renal artery MRA. 12/29/2018-his renal function is stable. 12/30/2018-renal function is stable. Continue to monitor with adjustments in medications. As noted above, follow-up with nephrology and continue to monitor renal artery stenosis. (4) Tobacco abuse Is this a current diagnosis for this admission?: Yes Plan: 12/28/2018-continue nicotine patch. 12/29/2018-explained to the patient that if she keeps smoking it will accelerate her renal artery stenosis as well as increase her risk for stroke, lung disease and peripheral arterial disease. We will continue the nicotine patch. She states that she is not experiencing any problems and would like to quit. 12/30/2018-once again tobacco cessation was encouraged. I did point out that it would make the renal artery stenosis worse. She would also be at risk for w orsening respiratory illness. (5) Renal artery stenosis Is this a current diagnosis for this admission?: Yes Plan: 12/29/2018-MRI revealed 50% stenosis bilateral renal arteries. Both lesions are at or close to the proximal end. Excellent blood pressure control on the current regimen. Consider modifying regimen with a focus on the renal artery stenosis. Once is stable consider referral for angioplasty. 12/30/2018-losartan has been increased. She will need outpatient monitoring and follow-up with nephrology. (6) Myoclonus Is this a current diagnosis for this admission?: Yes Plan: 12/29/2018-the patient exhibits myoclonic-like jerking of her legs. I will ask physical therapy to see her. She states it was due to an injection in her knee. I suggested that she be evaluated by neurology or physiatry post discharge. 12/30/2018-still symptomatic. Consider medication intervention however more and evaluation by neurology first might be more appropriate. We will ask physical therapy to see the patient as well. - Time Time Spent with patient: 15-24 minutes Smoking Cessation Education: 3 to 10 minutes Medications reviewed and adjusted accordingly: Yes
[2018-12-30] MEDS: LOSARTAN POTASSIUM 50 MG TABLET PO SCH (21:35)
[2018-12-30] MEDS: ASPIRIN 81 MG TABLET, ENT COATED PO SCH (21:35)
[2018-12-30] MEDS: ATORVASTATIN CALCIUM 40 MG TABLET PO SCH (21:35)
[2018-12-31] MEDS: NITROGLYCERIN 2% OINTMENT 1 GM PACKET TP SCH ×3 (05:03→14:46)
[2018-12-31] MEDS: HYDRALAZINE HCL 10 MG TABLET PO SCH ×3 (05:25→21:55)
[2018-12-31 06:32] LABS: ANION GAP 10 (5-19); BLOOD UREA NITROGEN 22 mg/dL (7-20); CALCIUM 9.6 mg/dL (8.4-10.2); CARBON DIOXIDE 27 mmol/L (22-30); CHLORIDE 103 mmol/L (98-107); GLUCOSE 109 mg/dL (75-110); POTASSIUM 4.7 mmol/L (3.6-5.0)
[2018-12-31] MEDS: INSULIN LISPRO 100 UNIT/ML 3 ML VIAL SUBCUT SCH ×4 (09:20→22:07)
[2018-12-31] MEDS: NICOTINE 21 MG/24 HR PATCH.TD24 TD SCH (09:28)
[2018-12-31] MEDS: AMLODIPINE BESYLATE 10 MG TABLET PO SCH (09:31)
[2018-12-31] MEDS: ENOXAPARIN SODIUM INJ 40 MG/0.4 ML DISP.SYRIN SUBCUT SCH (09:32)
[2018-12-31] MEDS: LOSARTAN POTASSIUM 50 MG TABLET PO SCH ×2 (09:33→21:55)
[2018-12-31] MEDS: NITROGLYCERIN 5 MG (0.2 MG/HR) PATCH.TD24 TD SCH (17:37)
--- NOTE | 2018-12-31 21:33 | PDOC PROGRESS REPORT ---
Subjective Progress Note for:: 12/31/18 Subjective:: The patient is finishing supper. She is resting comfortably. No acute issues. Reason For Visit: MALIGNANT HTN Physical Exam Vital Signs: Temp Pulse Resp BP Pulse Ox 98.5 F 74 16 153/74 H 98 12/31/18 16:14 12/31/18 16:14 12/31/18 16:14 12/31/18 16:14 12/31/18 16:14 Intake & Output 12/30/18 12/31/18 01/01/19 06:59 06:59 06:59 Intake Total 360 1120 640 Output Total 900 Balance -540 1120 640 Weight 63.2 kg 63.7 kg General appearance: PRESENT: no acute distress, cooperative, well-developed. ABSENT: disheveled, obese Head exam: PRESENT: atraumatic, normocephalic Eye exam: PRESENT: conjunctiva pale. ABSENT: conjunctival injection, scleral icterus Ear exam: PRESENT: normal external ear exam. ABSENT: bleeding, drainage Mouth exam: PRESENT: moist, tongue midline Respiratory exam: PRESENT: clear to auscultation cam[place], symmetrical, unlabored. ABSENT: accessory muscle use, rales, rhonchi, tachypnea, wheezes Cardiovascular exam: PRESENT: RRR, +S1, +S2. ABSENT: diastolic murmur, systolic murmur GI/Abdominal exam: PRESENT: normal bowel sounds, soft. ABSENT: distended, tenderness Rectal exam: PRESENT: deferred Gentrourinary exam: ABSENT: indwelling catheter Extremities exam: PRESENT: full ROM. ABSENT: pedal edema Musculoskeletal exam: PRESENT: normal inspection Neurological exam: PRESENT: alert, awake, oriented to person, oriented to place, oriented to time, oriented to situation, CN II-XII grossly intact Psychiatric exam: PRESENT: appropriate affect, normal mood. ABSENT: agitated, anxious Focused psych exam: ABSENT: delusional, restlessness Skin exam: PRESENT: dry, normal color, warm. ABSENT: rash Results Laboratory Results: 12/30/18 03:37 12/31/18 05:39 12/31/18 05:39 Sodium 140.1 Potassium 4.7 Chloride 103 Carbon Dioxide 27 Anion Gap 10 BUN 22 H Creatinine 1.53 H Est GFR ( Amer) 42 L Glucose 109 Calcium 9.6 Magnesium 2.2 12/26/18 12/26/18 12/26/18 15:10 15:10 21:54 Creatine Kinase 113 91 CK-MB (CK-2) 1.53 Troponin I 0.053 NT-Pro-B Natriuret Pep 12/26/18 12/27/18 12/27/18 21:54 04:03 04:03 Creatine Kinase 89 CK-MB (CK-2) 1.52 1.52 Troponin I 0.050 0.052 NT-Pro-B Natriuret Pep 274 12/27/18 12/27/18 12/27/18 10:05 10:05 16:01 Creatine Kinase 93 87 CK-MB (CK-2) 1.23 Troponin I 0.049 NT-Pro-B Natriuret Pep 12/27/18 12/27/18 12/27/18 16:01 21:47 21:47 Creatine Kinase 83 CK-MB (CK-2) 1.47 1.41 Troponin I 0.042 0.047 NT-Pro-B Natriuret Pep 12/28/18 12/28/18 03:33 03:33 Creatine Kinase 87 CK-MB (CK-2) 1.07 Troponin I 0.059 NT-Pro-B Natriuret Pep Impressions: Renal Ultrasound 12/26/18 00:00 IMPRESSION: 1. Increased bilateral renal cortical echogenicity. This can be seen with medical renal disease. Chest X-Ray 12/26/18 15:22 IMPRESSION: Mild cardiomegaly. No failure. Chest CT 12/27/18 00:00 IMPRESSION: Cardiomegaly. No acute findings. Renal Artery Duplex 12/28/18 00:00 IMPRESSION: Elevated main renal artery velocities on the right. Elevated velocities at the left renal hilum. Recommend correlation with MRA. Abdomen MRI with MRA 12/28/18 16:56 IMPRESSION: Examination is somewhat limited by motion artifact. Solitary bilateral renal arteries. Suspect approximately 50% stenosis at the origin of the right renal artery and approximately 50% stenosis approximately 1 cm distal to the origin of the left renal artery. Findings are in keeping with Doppler flow velocity abnormalities on prior renal Doppler ultrasound. CT angiogram may be used to further evaluate and is more robust against breath motion artifact and superior for the evaluation of calcific atherosclerosis. Assessment and Plan - Diagnosis (1) HTN (hypertension), malignant Is this a current diagnosis for this admission?: Yes Plan: 12/28/2018-the patient was on a continuous Cardene drip. She has been off the drip since this morning. We have initiated hydralazine, amlodipine and low-dose losartan. The patient is scheduled for a renal artery MRA. Blood pressures are still elevated but we need to reduce slowly. 12/29/2018-patient's blood pressure is very good. At this time we will continue the hydralazine, losartan and amlodipine. Consider decreasing the hydralazine increase in the losartan as well as adding chlorthalidone. 12/30/2018-her blood pressure still higher than desired. I will increase the losartan. We may need to decrease the amlodipine and/or hydralazine. The patient does have bilateral renal stenosis at approximately 50% on each side. She will need follow-up with nephrology. At this point I do not believe any surgical or intravascular intervention is required. 12/31/2018-the blood pressure is good today. I only concern is that her creatinine is trending up. If the creatinine is any higher tomorrow we will need to decrease her losartan to 50 mg once a day. If blood pressure remains stable she can discharged home. Unfortunately without insurance she will not angulo ve access to nephrology but she should follow-up at the [facility]. (2) Diabetes Qualifiers: Diabetes mellitus type: type 2 Diabetes mellitus long term acute care registered nurse insulin use: without intermediate use Diabetes mellitus complication status: with kidney complications Diabetes mellitus complication detail: with chronic kidney disease Chronic kidney disease stage: stage 3 (moderate) Qualified Code(s): E11.22 - Type 2 diabetes mellitus with diabetic chronic kidney disease; N18.3 - Chronic kidney disease, stage 3 (moderate) Is this a current diagnosis for this admission?: Yes Plan: 12/28/2018-continue sliding scale coverage. Accu-Cheks are all under 200. 12/29/20180168-Uqtu-[place]i are excellent. Continue current regimen. 12/30/2018-still with excellent Accu-Cheks. Continue diabetic diet. 12/31/20181197-Avtc-Zjgkh are excellent. She is only on sliding scale but has needed minimal coverage. Continue diabetic diet with low-fat and low-salt as an outpatient. (3) CKD (chronic kidney disease) Qualifiers: Chronic kidney disease stage: stage 3 (moderate) Qualified Code(s): N18.3 - Chronic kidney disease, stage 3 (moderate) Is this a current diagnosis for this admission?: Yes Plan: 12/28/2018-patient with stage III chronic kidney disease. Creatinine appears stable. Await results of renal artery MRA. 12/29/2018-his renal function is stable. 12/30/2018-renal function is stable. Continue to monitor with adjustments in medications. As noted above, follow-up with nephrology and continue to monitor renal artery stenosis. 12/31/2018-bilateral renal artery stenosis is present. The chronic kidney disease may more likely be related to her diabetes but it is likely a combination. She will follow-up with [facility] initially and once healthcare coverage can be obtained she should follow-up with nephrology. (4) Tobacco abuse Is this a current diagnosis for this admission?: Yes Plan: 12/28/2018-continue nicotine patch. 12/29/2018-explained to the patient that if she keeps smoking it will accelerate her renal artery stenosis as well as increase her risk for stroke, lung disease and peripheral arterial disease. We will continue the nicotine patch. She states that she is not experiencing any problems and would like to quit. 12/30/2018-once again tobacco cessation was encouraged. I did point out that it would make the renal artery stenosis worse. She would also be at risk for worsening respiratory illness. 12/31/2018-continue to encourage cessation (5) Renal artery stenosis Is this a current diagnosis for this admission?: Yes Plan: 12/29/2018-MRI revealed 50% stenosis bilateral renal arteries. Both lesions are at or close to the proximal end. Excellent blood pressure control on the curren t regimen. Consider modifying regimen with a focus on the renal artery stenosis. Once is stable consider referral for angioplasty. 12/30/2018-losartan has been increased. She will need outpatient monitoring and follow-up with nephrology. 12/31/2018-her blood pressure is better. Her losartan in fact may need to be decreased slightly. (6) Tardive dyskinesia Is this a current diagnosis for this admission?: Yes Plan: 12/31/2018-the patient still has dyskinetic movement. He does not have typical parkinsonian pill-rolling tremor. It is not a resting or intention tremor but more involuntary jerking of the lower extremities. This is hampering her gait. Physical therapy suggested a walker however the patient has no insurance. She may consider renting 1 if possible. I told the patient that she needs follow-up with neurology. You can try medications but it is better to know what you are treating. I will defer to the [facility] for ongoing management. - Time Time Spent with patient: Less than 15 minutes Smoking Cessation Education: 3 to 10 minutes Medications reviewed and adjusted accordingly: Yes Anticipated discharge: Home Within: within 48 hours - Plan Summary Plan Summary: The patient presented with hypertensive crisis. She was started on nicardipine drip and wean to oral medications. She was found to have 50% stenoses in both renal arteries. Her blood pressure is fair. The pressure will likely improve as the medications mature. Her creatinine was slightly higher today and her losartan may need to be decreased to 50 mg daily or 25 mg twice daily. Diabetes very well controlled on diet alone. Tardive dyskinesia warrants neurology follow-up. Currently uninsured. Follow-up with [facility] for the time being. Defer to their management.
[2018-12-31] MEDS: ATORVASTATIN CALCIUM 40 MG TABLET PO SCH (21:55)
[2018-12-31] MEDS: ASPIRIN 81 MG TABLET, ENT COATED PO SCH (21:55)
[2019-01-01] MEDS: HYDRALAZINE HCL INJ/PF 20 MG/1 ML SDV IV PRN (00:38)
[2019-01-01] MEDS: MORPHINE SULFATE 10 MG/ML INJ IV PRN (00:50)
[2019-01-01 05:38] LABS: ALBUMIN 4.3 g/dL (3.5-5.0); ANION GAP 11 (5-19); BLOOD UREA NITROGEN 21 mg/dL (7-20); CALCIUM 9.9 mg/dL (8.4-10.2); CARBON DIOXIDE 26 mmol/L (22-30); CHLORIDE 101 mmol/L (98-107); GLUCOSE 134 mg/dL (75-110); PHOSPHORUS 4.3 mg/dL (2.5-4.5); POTASSIUM 4.8 mmol/L (3.6-5.0)
[2019-01-01] MEDS: HYDRALAZINE HCL 10 MG TABLET PO SCH (06:39)
[2019-01-01] MEDS: INSULIN LISPRO 100 UNIT/ML 3 ML VIAL SUBCUT SCH ×2 (08:09→11:22)
[2019-01-01] MEDS: AMLODIPINE BESYLATE 10 MG TABLET PO SCH (09:18)
[2019-01-01] MEDS: LOSARTAN POTASSIUM 50 MG TABLET PO SCH (09:18)
[2019-01-01] MEDS: ENOXAPARIN SODIUM INJ 40 MG/0.4 ML DISP.SYRIN SUBCUT SCH (09:18)
[2019-01-01] MEDS: NICOTINE 21 MG/24 HR PATCH.TD24 TD SCH (09:18)
[2019-01-01] MEDS: NITROGLYCERIN 5 MG (0.2 MG/HR) PATCH.TD24 TD SCH (09:18)
[2019-01-01 12:10] VITALS: BP 135/74
--- NOTE | 2019-01-01 17:15 | PDOC DISCHARGE SUMMARY ---
General - Admit/Disc Date/PCP Admission Date/Primary Care Provider: 12/26/18 18:02 [facility] Discharge Date: 01/01/19 - Discharge Diagnosis (1) HTN (hypertension), malignant Is this a current diagnosis for this admission?: Yes Summary: She initially looked like she was going to require a Cardene drip, but her blood pressure started to trend down and responded to oral medications. She said that she has had a little bit of a headache since her blood pressure came down, so we do not want to drop her systolic anymore beyond the 150s 160s until her brain has time to acclimate. (2) Renal artery stenosis Is this a current diagnosis for this admission?: Yes Summary: She has approximately 50% renal artery stenosis bilaterally. Once her blood pressures are doing better, she can follow-up with vascular surgery as an outpatient. (3) CKD (chronic kidney disease) Is this a current diagnosis for this admission?: Yes Summary: Creatinine was stable in his usual range today at 1.3. (4) Diabetes Is this a current diagnosis for this admission?: Yes Summary: Hemoglobin A1c 6.2%. She wants to try to continue to manage this conservatively. - Additional Information Resuscitation Status: Full Code Discharge Diet: Cardiac, Diabetic Discharge Activity: Slowly Increase Activity Prescriptions: Losartan Potassium [Cozaar 50 mg Tablet] 50 mg PO Q12 #60 tablet Amlodipine Besylate [Norvasc 10 mg Tablet] 10 mg PO DAILY #30 tablet Home Medications: Amlodipine Besylate [Norvasc 10 mg Tablet] 10 mg PO DAILY #30 tablet 01/01/19 Aspirin [Ecotrin 81 mg EC Tablet] 81 mg PO QHS tabec 01/01/19 Losartan Potassium [Cozaar 50 mg Tablet] 50 mg PO Q12 #60 tablet 01/01/19 History of Present Illness History of Present Illness: ULISES MCKEON is a 58 year old female with history of hypertension noncompliant with medications questionable history of diabetes mellitus chronic kidney disease back pains came to the emergency room with complaints of severe headaches. She went to [facility] and found to have a blood pressures are very much elevated with systolic blood pressure more than 210 patient was referred to the ER for further management. In the emergency room systolic blood pressure is consistently able to 10 and her diastolic blood pressure is consistently above 110 she was given labetalol 20 mg IV 1 dose at the 3:25 PM nicardipine drip was ordered but not started at the time of my examination around 5:50 PM. Patient also complaining of unsteady gait denies any history of falls. She is also given the history of questionable borderline diabetes mellitus and questionable CKD. Hospital Course Hospital Course: It took a few days a get her blood pressure under reasonable degree of control. We had to adjust her medications slowly because initially her creatinine went up but then it trended down today so she seems to be tolerating the medication well. Her hemoglobin A1c was 6.2% but she did not want to try medication for that because she believes that she can manage that with diet. There was some reports of some dyskinesia but the patient did not display any myoclonic jerks or abnormal movement patterns today. Physical therapy recommended a walker, the patient does not have insurance but states she would pay for oik-in-clwrrh. She is going to follow[facility] with [facility]. Her labs and exa mination were reassuring and she was discharged in good condition. Physical Exam Vital Signs: Temp Pulse Resp BP Pulse Ox 98.3 F 76 16 135/74 H 97 01/01/19 12:09 01/01/19 12:09 01/01/19 12:09 01/01/19 12:09 01/01/19 12:09 Intake & Output 12/31/18 01/01/19 01/02/19 06:59 06:59 06:59 Intake Total 1120 1140 Balance 1120 1140 Weight 63.7 kg 64.9 kg General appearance: PRESENT: no acute distress, cooperative, disheveled Respiratory exam: PRESENT: clear to auscultation [place], symmetrical, unlabored. ABSENT: accessory muscle use, chest wall tenderness, crackles, prolonged expiratory phas, rhonchi, tachypnea, wheezes Cardiovascular exam: PRESENT: RRR, +S1, +S2 Pulses: PRESENT: normal carotid pulses Vascular exam: PRESENT: normal capillary refill GI/Abdominal exam: PRESENT: normal bowel sounds, soft. ABSENT: distended, guarding, rebound, tenderness Extremities exam: ABSENT: clubbing, pedal edema Musculoskeletal exam: PRESENT: normal inspection. ABSENT: deformity Neurological exam: PRESENT: alert, awake, oriented to person, oriented to place, oriented to situation Psychiatric exam: PRESENT: appropriate affect, normal mood Skin exam: PRESENT: dry, warm Results Laboratory Results: 12/30/18 03:37 01/01/19 04:36 01/01/19 04:36 Sodium 138.4 Potassium 4.8 Chloride 101 Carbon Dioxide 26 Anion Gap 11 BUN 21 H Creatinine 1.30 H Est GFR ( Amer) 51 L Glucose 134 H Calcium 9.9 Phosphorus 4.3 Albumin 4.3 12/26/18 12/26/18 12/26/18 15:10 15:10 21:54 Creatine Kinase 113 91 CK-MB (CK-2) 1.53 Troponin I 0.053 NT-Pro-B Natriuret Pep 12/26/18 12/27/18 12/27/18 21:54 04:03 04:03 Creatine Kinase 89 CK-MB (CK-2) 1.52 1.52 Troponin I 0.050 0.052 NT-Pro-B Natriuret Pep 274 12/27/18 12/27/18 12/27/18 10:05 10:05 16:01 Creatine Kinase 93 87 CK-MB (CK-2) 1.23 Troponin I 0.049 NT-Pro-B Natriuret Pep 12/27/18 12/27/18 12/27/18 16:01 21:47 21:47 Creatine Kinase 83 CK-MB (CK-2) 1.47 1.41 Troponin I 0.042 0.047 NT-Pro-B Natriuret Pep 12/28/18 12/28/18 03:33 03:33 Creatine Kinase 87 CK-MB (CK-2) 1.07 Troponin I 0.059 NT-Pro-B Natriuret Pep Impressions: Renal Ultrasound 12/26/18 00:00 IMPRESSION: 1. Increased bilateral renal cortical echogenicity. This can be seen with medical renal disease. Chest X-Ray 12/26/18 15:22 IMPRESSION: Mild cardiomegaly. No failure. Chest CT 12/27/18 00:00 IMPRESSION: Cardiomegaly. No acute findings. Renal Artery Duplex 12/28/18 00:00 IMPRESSION: Elevated main renal artery velocities on the right. Elevated velocities at the left renal hilum. Recommend correlation with MRA. Abdomen MRI with MRA 12/28/18 16:56 IMPRESSION: Examination is somewhat limited by motion artifact. Solitary bilateral renal arteries. Suspect approximately 50% stenosis at the origin of the right renal artery and approximately 50% stenosis approximately 1 cm distal to the origin of the left renal artery. Findings are in keeping with Doppler flow velocity abnormalities on prior renal Doppler ultrasound. CT angiogram may be used to further evaluate and is more robust against breath motion artifact and superior for the evaluation of calcific atherosclerosis. Qualifiers - * PATIENT BEING DISCHARGED WITH ANY OF THE FOLLOWING DIAGNOSIS: No Acute Heart Failure - Is this a Heart Failure Patient?: No Plan Time Spent: Greater than 30 Minutes
== END 2019-01-01 13:38 | disposition hospice, home (50) | DRG 305 ==
LOC: ER 14:17 → EH 18:02 → 3N 22:11 → ICU 12-27 09:40 → 3N 12-30 12:40
PROVIDERS: ADMIT Internal Medicine; ATTEND Internal Medicine
DX: I16.1 Hypertensive emergency (principal); I12.9 Hypertensive chronic kidney disease with stage 1 through stage 4 chronic kidney disease, or unspecified chronic kidney disease; I70.1 Atherosclerosis of renal artery; E11.22 Type 2 diabetes mellitus with diabetic chronic kidney disease; N18.3 Chronic kidney disease, stage 3 (moderate); F17.210 Nicotine dependence, cigarettes, uncomplicated; G25.3 Myoclonus; G24.01 Drug induced subacute dyskinesia; Z79.899 Other long term (current) drug therapy; Z91.14 Patient's other noncompliance with medication regimen; Z83.3 Family history of diabetes mellitus; Z82.49 Family history of ischemic heart disease and other diseases of the circulatory system
CPT/HCPCS: 36415; 71045; 71250; 76775; 80048; 80053; 80069; 81001; 82550; 82553; 82962; 83036; 83690; 83735; 83880; 84484; 85025; 85027; 93005; 93010; 93975; 96361; 96374; 96375; 99285; C8901; J0360; J1650; J2270; J2405; J3490; J7030; S0164

== ENCOUNTER → 2019-02-26 | Outpatient (CLI) | payer OTHER ==
[2019-02-26 08:30] LABS: ABSOLUTE EOSINOPHILS # (AUTO) 0.1 10^3/uL (0.0-0.6); ABSOLUTE LYMPHOCYTES (AUTO) 3.6 10^3/uL (0.5-4.7); ABSOLUTE MONOCYTES (AUTO) 0.5 10^3/uL (0.1-1.4); ABSOLUTE NEUT (AUTO) 3.9 10^3/uL (1.7-8.2); BASOPHILS % (AUTO) 0.4 % (0-2); EOSINOPHILS % (AUTO) 1.3 % (0-6); HEMATOCRIT 41.2 % (36.0-47.0); HEMOGLOBIN 14.1 g/dL (12.0-15.5); MEAN CORPUSCULAR HEMOGLOBIN 28.1 pg (27.0-33.4); MEAN CORPUSCULAR HGB CONC 34.3 g/dL (32.0-36.0); MEAN CORPUSCULAR VOLUME 82 fl (80-97); MONOCYTES % (AUTO) 6.1 % (3-13); PLATELET COUNT 178 10^3/uL (150-450); RED BLOOD COUNT 5.04 10^6/uL (3.72-5.28); RED CELL DISTRIBUTION WIDTH 13.6 % (11.5-14.0); SEGMENTED NEUTROPHILS % (AUTO) 48.2 % (42-78); TOTAL CELLS COUNTED % (AUTO) 100 %; WHITE BLOOD COUNT 8.1 10^3/uL (4.0-10.5)
[2019-02-26 08:52] LABS: ALBUMIN 4.6 g/dL (3.5-5.0); ALKALINE PHOSPHATASE 99 U/L (38-126); ANION GAP 13 (5-19); ASPARTATE AMINO TRANSFERASE 24 U/L (14-36); BILIRUBIN,DIRECT 0.1 mg/dL (0.0-0.4); BILIRUBIN,TOTAL 0.4 mg/dL (0.2-1.3); BLOOD UREA NITROGEN 20 mg/dL (7-20); CALCIUM 9.9 mg/dL (8.4-10.2); CARBON DIOXIDE 30 mmol/L (22-30); CHLORIDE 97 mmol/L (98-107); CHOLESTEROL 221.81 mg/dL (0-200); GLUCOSE 200 mg/dL (75-110); POTASSIUM 4.3 mmol/L (3.6-5.0); TRIGLYCERIDES 241 mg/dL (<150)
--- NOTE | 2019-02-26 08:59 | RADIOLOGY REPORT (SQ) ---
EXAM DESCRIPTION: KNEE BILATERAL 1-2 VIEWS COMPLETED DATE/TIME: 02/26/2019 8:43 am REASON FOR STUDY: UNSPECIFIED OSTEOARTHRITIS, UNSPECIFIED SITE M19.90 UNSPECIFIED OSTEOARTHRITIS, U NSPECIFIED SITE I10 ESSENTIAL (PRIMARY) HYPERTENSION M62.838 OTHER MUSCLE SPASM COMPARISON: None. NUMBER OF VIEWS: Two views. TECHNIQUE: AP and lateral standing bilateral knees. LIMITATIONS: None. FINDINGS: MINERALIZATION: Normal. RIGHT KNEE BONES: No acute fracture. No worrisome bone lesions. MEDIAL COMPARTMENT: No significant osteophytes. No joint space narrowing. No chondrocalcinosis. LATERAL COMPARTMENT: No significant osteophytes. No joint space narrowing. No chondrocalcinosis. PATELLOFEMORAL COMPARTMENT: No significant osteophytes. No joint space narrowing. No chondrocalc inosis. Few vascular calcifications. LEFT KNEE BONES: No acute fracture. No worrisome bone lesions. MEDIAL COMPARTMENT: No significant osteophytes. No joint space narrowing. No chondrocalcinosis. LATERAL COMPARTMENT: No significant osteophytes. No joint space narrowing. No chondrocalcinosis. PATELLOFEMORAL COMPARTMENT: No significant osteophytes. No joint space narrowing. No chondrocalc inosis. IMPRESSION: No evidence of acute bony abnormality in either knee. No significant degenerative change. TECHNICAL DOCUMENTATION: JOB ID: [id number] [employer]- All Rights Reserved Reading location - IP/workstation name: [email or web address]
[2019-02-26 09:05] LABS: DIRECT LDL 151 mg/dL (<100)
[2019-02-26 09:06] LABS: VLDL CHOLESTEROL 48.2 mg/dL (10-31)
== END ==
LOC: CCC 07:15
DX: M62.838 Other muscle spasm (principal); M19.90 Unspecified osteoarthritis, unspecified site; I10 Essential (primary) hypertension
CPT/HCPCS: 36415; 80053; 80061; 83735; 84443; 85025

== ENCOUNTER → 2019-03-16 | Outpatient (CLI) | payer OTHER ==
--- NOTE | 2019-03-17 13:39 | RADIOLOGY REPORT (SQ) ---
EXAM DESCRIPTION: MRI LT LOWER JOINT WITHOUT COMPLETED DATE/TIME: 03/16/2019 3:23 pm REASON FOR STUDY: (M19.90)Unspecified osteoarthritis, unspecified site M19.90 UNSPECIFIED OSTEOARTH RITIS, UNSPECIFIED SITE COMPARISON: None. TECHNIQUE: Leftknee images acquired and stored on PACS. Multiplanar images include fat sensitive se quences as T1, water sensitive sequences as FST2 or STIR, cartilage sensitive sequences as FSPD, and gradient echo sequences. LIMITATIONS: Motion. FINDINGS: JOINT AND BURSAE: No effusion. BONE CORTEX AND MARROW: No alteration of signal to suggest marrow replacement. No worrisome bone lesi ons. No occult fracture. ACL: Intact. No degeneration or ganglion cyst. PCL: Intact. MCL: Intact. No periligamentous edema or fluid. LCL: Intact. No periligamentous edema or fluid. MEDIAL MENISCUS: Increased T2 signal posterior horn extending to the articular surface in the horizon [place] plane. LATERAL MENISCUS: No tears. No abnormal signal. MEDIAL COMPARTMENT: Cartilage thinning. No osteophytes or subchondral edema. LATERAL COMPARTMENT: Cartilage preserved. No bone bruises or reactive marrow edema. No osteophytes. PATELLA: No chondromalacia. No subchondral cysts. Medial and lateral retinacula intact. EXTENSOR MECHANISM: Intact. Quadriceps and patella tendons normal. SOFT TISSUES: Adjacent muscles and subcutaneous tissues normal. Normal flow void in popliteal artery and vein. OTHER: No other significant finding. IMPRESSION: Horizontal tear posterior horn medial meniscus. TECHNICAL DOCUMENTATION: JOB ID: [id number] [employer]- All Rights Reserved Reading location - IP/workstation name: [facility]
--- NOTE | 2019-03-17 13:41 | RADIOLOGY REPORT (SQ) ---
EXAM DESCRIPTION: MRI RT LOWER JOINT WITHOUT COMPLETED DATE/TIME: 03/16/2019 3:23 pm REASON FOR STUDY: (M19.90)Unspecified osteoarthritis, unspecified site M19.90 UNSPECIFIED OSTEOARTH RITIS, UNSPECIFIED SITE COMPARISON: None. TECHNIQUE: Rightknee images acquired and stored on PACS. Multiplanar images include fat sensitive s equences as T1, water sensitive sequences as FST2 or STIR, cartilage sensitive sequences as FSPD, and gradient echo sequences. LIMITATIONS: Motion. FINDINGS: JOINT AND BURSAE: No effusion. BONE CORTEX AND MARROW: No alteration of signal to suggest marrow replacement. No worrisome bone lesi ons. No occult fracture. ACL: Intact. No degeneration or ganglion cyst. PCL: Intact. MCL: Intact. No periligamentous edema or fluid. LCL: Intact. No periligamentous edema or fluid. MEDIAL MENISCUS: Increased T2 signal posterior horn extending to the articular surface in the horizon [place] plane. LATERAL MENISCUS: No tears. No abnormal signal. MEDIAL COMPARTMENT: Cartilage thinning. No large osteophytes or subchondral edema. LATERAL COMPARTMENT: Cartilage preserved. No bone bruises or reactive marrow edema. No osteophytes. PATELLA: No chondromalacia. No subchondral cysts. Medial and lateral retinacula intact. EXTENSOR MECHANISM: Intact. Quadriceps and patella tendons normal. SOFT TISSUES: Adjacent muscles and subcutaneous tissues normal. Normal flow void in popliteal artery and vein. OTHER: No other significant finding. IMPRESSION: Horizontal tear posterior horn medial meniscus. TECHNICAL DOCUMENTATION: JOB ID: [id number] [employer]- All Rights Reserved Reading location - IP/workstation name: [email or web address]
== END ==
LOC: RAD 14:02
PROVIDERS: ATTEND Family Medicine
DX: M19.90 Unspecified osteoarthritis, unspecified site (principal)

== ENCOUNTER → 2019-03-19 | Outpatient (CLI) | payer OTHER ==
--- NOTE | 2019-03-19 09:57 | WOMENS IMAGING REPORT ---
EXAM DESCRIPTION: SALAZAR TOSCANO BILATERAL SCREEN COMPLETED DATE/TIME: 03/19/2019 8:53 am REASON FOR STUDY: ROUTINE BILATERAL SCREENING;Z12.31 Z12.31 ENCNTR SCREEN MAMMOGRAM FOR MALIGNANT N EOPLASM OF KRISTOPHER COMPARISON: None. EXAM PARAMETERS: Standard craniocaudal and mediolateral oblique views of each breast recorded using digital acquisition. Read with the assistance of CAD. .[facility] - [employer] Operator Version 9.2 LIMITATIONS: None. FINDINGS: No suspicious masses, suspicious calcifications or architectural distortion. No areas of c oncern. IMPRESSION: Negative MAMMOGRAM. BIRADS 1 BREAST DENSITY: b. There are scattered areas of fibroglandular density. BIRAD: ASSESSMENT: 1 NEGATIVE RECOMMENDATION: ROUTINE SCREENING COMMENT: The patient has been notified of the results by letter per MQSA requirements. Additional no tification policies are in place for contacting patient with suspicious or incomplete findings. Quality ID #[id number]: The [employer] recommends an annual screening mammogram for women aged 40 years or over. This facility utilizes a reminder system to ensure that all patients receive reminder letters, and/or direct phone calls for appointments. This includes reminders for routine scr eening mammograms, diagnostic mammograms, or other Breast Imaging Interventions when appropriate. Th is patient will be placed in the appropriate reminder system. TECHNICAL DOCUMENTATION: FINDING NUMBER: (1) ASSESSMENT: (1) JOB ID: [id number] [employer]- All Rights Reserved Reading location - IP/workstation name: [email or web address]
== END ==
LOC: WI 06:58
PROVIDERS: ATTEND Family Medicine
DX: Z12.31 Encounter for screening mammogram for malignant neoplasm of breast (principal)
CPT/HCPCS: 77067

== ENCOUNTER 2019-04-01 08:33 | Emergency (ER) | payer OTHER ==
--- NOTE | 2019-04-01 09:13 | ER Document Report ---
ED Medical Screen (RME) - General Chief Complaint: Congestion Stated Complaint: LEFT LEG PAIN, WEAKNESS,CAN'T WALK Time Seen by Provider: 04/01/19 09:05 Primary Care Provider: SAJI MATSON MD [Primary Care Provider] - Follow up as needed Information source: Patient Notes: Patient presents complaining of cough and congestion for the past 2 weeks with sore throat. Patient also complains of left knee pain. Patient reports subjective fever at home. No vomiting or diarrhea. Cough is been occasionally productive. I have greeted and performed a rapid initial assessment of this patient. A comprehensive ED assessment and evaluation of the patient, analysis of test results and completion of the medical decision making process will be conducted by additional ED providers. TRAVEL OUTSIDE OF THE [place] IN LAST 30 DAYS: No - Related Data Allergies/Adverse Reactions: No Known Allergies Allergy (Unverified 12/26/18 14:19) Past Medical History - Social History Chew tobacco use (# tins/day): No Frequency of alcohol use: None Drug Abuse: None - Past Medical History Cardiac Medical History: Reports: Hx Hypertension Endocrine Medical History: Reports: Hx Diabetes Mellitus Type 2 Psychiatric Medical History: Denies: Hx Depression Past Surgical History: Reports: Hx Section, Hx Tonsillectomy Physical Exam - Vital signs Vitals: Temp Pulse Resp BP Pulse Ox 98.0 F 86 16 107/84 99 04/01/19 08:40 04/01/19 08:40 04/01/19 08:40 04/01/19 08:40 04/01/19 08:40 - Respiratory Respiratory status: No respiratory distress Chest status: Nontender Breath sounds: Nonproductive cough Course - Vital Signs Vital signs: Temp Pulse Resp BP Pulse Ox 98.0 F 86 16 107/84 99 04/01/19 08:52 04/01/19 08:52 04/01/19 08:52 04/01/19 08:52 04/01/19 08:52 Doctor's Discharge - Discharge Referrals: SAJI MATSON MD [Primary Care Provider] - Follow up as needed
--- NOTE | 2019-04-01 09:40 | RADIOLOGY REPORT (SQ) ---
EXAM DESCRIPTION: CHEST 2 VIEWS COMPLETED DATE/TIME: 04/01/2019 9:27 am REASON FOR STUDY: cough COMPARISON: 12/26/2018 TECHNIQUE: Frontal and lateral radiographic views of the chest acquired. NUMBER OF VIEWS: Two view. LIMITATIONS: None. FINDINGS: LUNGS AND PLEURA: No opacities, masses or pneumothorax. No pleural effusion. MEDIASTINUM AND HILAR STRUCTURES: No masses or contour abnormalities. HEART AND VASCULAR STRUCTURES: Heart normal size. No evidence for failure. BONES: No acute findings. HARDWARE: None in the chest. OTHER: No other significant finding. IMPRESSION: NO SIGNIFICANT RADIOGRAPHIC FINDING IN THE CHEST. TECHNICAL DOCUMENTATION: JOB ID: [id number] [employer]- All Rights Reserved Reading location - IP/workstation name: [email or web address]
--- NOTE | 2019-04-01 14:13 | ER Document Report ---
ED General - General Chief Complaint: Congestion Stated Complaint: LEFT LEG PAIN, WEAKNESS,CAN'T WALK Time Seen by Provider: 04/01/19 09:05 Primary Care Provider: SAJI MATSON MD [Primary Care Provider] - Follow up as needed TRAVEL OUTSIDE OF THE [place] IN LAST 30 DAYS: No - HPI Notes: [id number] presents to ED today ambulatory for sore throat and runny nose w/ wet cough but congestion she feels unable to "bring up" of week duration. says came today b/c not going away. she thinks she has had fevers, subjectively. denies n/v/abd pain. no bowel changes. denies skin or urinary changes. no known sick contacts. no other recent illnesses. pt does confirm shes's cont'd to deal w/ chronic pain b/l knees which she's being followed for (per [facility] emr MRI 03/16/19 read as "horizontal tears" both R and L medial meniscus). cont to bear weight. denies (new) falls or decline in mobility or funciton. Per [facility] records of hospital d/c summary for severe PATTON w/ htn adm 12/2018 has h/o "htn but NC w/ losartan & norvasc", questionable h/o DM", CKD - Related Data Allergies/Adverse Reactions: No Known Allergies Allergy (Unverified 12/26/18 14:19) Past Medical History - General Information source: Patient - Social History Smoking Status: Current Every Day Smoker Chew tobacco use (# tins/day): No Frequency of alcohol use: None Drug Abuse: None Family History: Reviewed & Not Pertinent Patient has suicidal ideation: No Patient has homicidal ideation: No - Past Medical History Cardiac Medical History: Reports: Hx Hypertension Endocrine Medical History: Reports: Hx Diabetes Mellitus Type 2 Renal/ Medical History: Reports: Hx Renal Insufficiency Musculoskeletal Medical History: Reports Other - b/l knee OA and medial meniscal tear b/l knees Psychiatric Medical History: Denies: Hx Depression Past Surgical History: Reports: Hx Section, Hx Tonsillectomy Review of Systems - Review of Systems Constitutional: See HPI, Fever. denies: Chills, Diaphoresis, Weakness, Weight gain, Weight loss EENT: No symptoms reported, See HPI, Nose congestion, Nose discharge, Throat pain. denies: Eye pain, Eye discharge, Blurred vision, Double vision, Ear pain, Nose pain, Difficulty swallowing, Throat swelling, Mouth pain, Mouth swelling, Dental problem Cardiovascular: No symptoms reported Respiratory: No symptoms reported, See HPI, Cough, Sputum. denies: Hurts to breathe, Hemoptysis, Short of breath, Stridor, Wheezing Gastrointestinal: No symptoms reported Genitourinary: No symptoms reported Female Genitourinary: No symptoms reported Musculoskeletal: No symptoms reported Skin: No symptoms reported Hematologic/Lymphatic: No symptoms reported Neurological/Psychological: No symptoms reported Physical Exam - Vital signs Vitals: Temp Pulse Resp BP Pulse Ox 98.0 F 86 16 107/84 99 04/01/19 08:40 04/01/19 08:40 04/01/19 08:40 04/01/19 08:40 04/01/19 08:40 Interpretation: Normal - General General appearance: Appears well, Alert - HEENT Head: Normocephalic, Atraumatic Eyes: Normal Pupils: PERRL - Respiratory Respiratory status: No respiratory distress Chest status: Nontender Breath sounds: Normal Chest palpation: Normal - Cardiovascular Rhythm: Regular Heart sounds: Normal auscultation Murmur: No - Abdominal Inspection: Normal Distension: No distension Bowel sounds: Normal Tenderness: Nontender Organomegaly: No organomegaly - Back Back: Normal, Nontender - Extremities General upper extremity: Normal inspection, Nontender, Normal color, Normal ROM, Normal temperature General lower extremity: Normal inspection, Nontender, Normal color, Normal ROM, Normal temperature, Normal weight bearing. No: Tena's sign - Neurological Neuro grossly intact: Yes Cognition: Normal Orientation: AAOx4 [place] Coma Scale Eye Opening: Spontaneous [place] Coma Scale Verbal: Oriented [place] Coma Scale Motor: Obeys Commands [place] Coma Scale Total: 15 Speech: Normal Motor strength normal: LUE, RUE, LLE, RLE Sensory: Normal - Psychological Associated symptoms: Normal affect, Normal mood - Skin Skin Temperature: Warm Skin Moisture: Dry Skin Color: Normal Course - Re-evaluation Re-evalutation: 04/12/19 12:07 i examined and interviewed patient, very nontoxic and well appearing w/ evidence mild pharyngitis. cxr reviewed and wnl. rapid strep negative. But, when i went to discuss w/u, and re-eval pt and discuss plan/discharge she had eloped from ED per staff. her VS had been wnl during ED visit and in NAD. - Vital Signs Vital signs: Temp Pulse Resp BP Pulse Ox 98 F 74 16 146/83 H 99 04/01/19 14:40 04/01/19 14:40 04/01/19 14:40 04/01/19 14:40 04/01/19 14:40 Discharge - Discharge Clinical Impression: Laryngitis Condition: Good Disposition: HOME, SELF-CARE Additional Instructions: Please watch over the next week and make sure your hoarseness resolves. Also if you do have fevers chills sweats vision change headache or worsening please be seen. I think this is just a viral laryngitis and hope that will improve over the next week. Make sure you are staying hydrated eat and drink well and follow-up with your doctor as needed for regular exams. There are a few labs that were pending that I will need to be following up on an call if you they are different from your usual, just to ensure your kidney function looks as it no rmally does. Prescriptions: Guaifenesin [Mucinex] 1,200 mg PO BID #[id number] Referrals: SAJI MATSON MD [Primary Care Provider] - Follow up as needed
[2019-04-01 14:41] VITALS: BP 146/83
== END 2019-04-01 14:41 | disposition home or self-care (01) ==
LOC: ER 08:33
DX: J04.0 Acute laryngitis (principal); J02.9 Acute pharyngitis, unspecified; R09.89 Other specified symptoms and signs involving the circulatory and respiratory systems; R05 Cough; F17.200 Nicotine dependence, unspecified, uncomplicated; R50.9 Fever, unspecified; Z53.20 Procedure and treatment not carried out because of patient's decision for unspecified reasons
CPT/HCPCS: 71046; 87070; 87880; 99283

== ENCOUNTER → 2019-06-04 | Outpatient (CLI) | payer OTHER ==
[2019-06-04 10:50] LABS: ABSOLUTE BASOPHILS # (AUTO) 0.1 10^3/uL (0.0-0.2); ABSOLUTE EOSINOPHILS # (AUTO) 0.1 10^3/uL (0.0-0.6); ABSOLUTE MONOCYTES (AUTO) 0.4 10^3/uL (0.1-1.4); ABSOLUTE NEUT (AUTO) 4.6 10^3/uL (1.7-8.2); BASOPHILS % (AUTO) 0.7 % (0-2); HEMATOCRIT 43.3 % (36.0-47.0); HEMOGLOBIN 14.7 g/dL (12.0-15.5); LYMPHOCYTES % (AUTO) 36.7 % (13-45); MEAN CORPUSCULAR HEMOGLOBIN 27.8 pg (27.0-33.4); MEAN CORPUSCULAR HGB CONC 33.9 g/dL (32.0-36.0); MEAN CORPUSCULAR VOLUME 82 fl (80-97); MONOCYTES % (AUTO) 4.6 % (3-13); PLATELET COUNT 205 10^3/uL (150-450); RED BLOOD COUNT 5.28 10^6/uL (3.72-5.28); RED CELL DISTRIBUTION WIDTH 13.4 % (11.5-14.0); TOTAL CELLS COUNTED % (AUTO) 100 %; WHITE BLOOD COUNT 8.1 10^3/uL (4.0-10.5)
[2019-06-04 11:02] LABS: ALBUMIN 4.7 g/dL (3.5-5.0); ALKALINE PHOSPHATASE 126 U/L (38-126); ANION GAP 18 (5-19); ASPARTATE AMINO TRANSFERASE 19 U/L (14-36); BILIRUBIN,DIRECT 0.4 mg/dL (0.0-0.4); BILIRUBIN,TOTAL 0.6 mg/dL (0.2-1.3); BLOOD UREA NITROGEN 25 mg/dL (7-20); CALCIUM 10.1 mg/dL (8.4-10.2); CARBON DIOXIDE 25 mmol/L (22-30); CHLORIDE 92 mmol/L (98-107); CHOLESTEROL 310.14 mg/dL (0-200); POTASSIUM 4.1 mmol/L (3.6-5.0); TOTAL PROTEIN 8.3 g/dL (6.3-8.2); TRIGLYCERIDES 278 mg/dL (<150)
[2019-06-04 11:08] LABS: VLDL CHOLESTEROL 55.6 mg/dL (10-31)
[2019-06-04 11:13] LABS: DIRECT LDL 197 mg/dL (<100); GLUCOSE 526 mg/dL (75-110)
== END ==
LOC: CCC 09:12
DX: E11.8 Type 2 diabetes mellitus with unspecified complications (principal); E78.5 Hyperlipidemia, unspecified
CPT/HCPCS: 36415; 80053; 80061; 83036; 85025